=== PATIENT | male | born 1955 | race Caucasian/White ===

== ENCOUNTER → 2016-04-16 | Outpatient (CLI) | payer BC ==
[~2016-04-16] VITALS: Ht 170.2 cm; Wt 120.7 kg
[2016-04-16 15:28] VITALS: BP 128/78; PULSE 73; BMI 41.7
[2016-04-16 15:29] VITALS: BP 136/82; PULSE 73; Ht 170.2 cm; Wt 120.7 kg
== END | disposition home or self-care (01) ==
LOC: C.NEUR 15:07
PROVIDERS: ATTEND Internal Medicine Pulmonary Disease
DX: G47.30 Sleep apnea, unspecified (principal)

== ENCOUNTER → 2016-10-16 | Outpatient (CLI) | payer BC ==
[2016-10-16 12:42] LABS: ALT/SGPT 57 U/L (12-78); AST/SGOT 24 U/L (15-37); BLOOD UREA NITROGEN 20 mg/dl (7-18); BUN/CREATININE RATIO 18.5 (10-20); CALCIUM 8.8 mg/dl (8.5-10.1); CARBON DIOXIDE 26 mmol/L (21-32); CHLORIDE 106 mmol/L (98-107); CHOLESTEROL 214 mg/dl (0-200); GLUCOSE 103 mg/dl (70-99); POTASSIUM 4.1 mmol/L (3.5-5.1); SODIUM 139 mmol/L (136-145); TRIGLYCERIDES 164 mg/dl (0-150); VERY LOW DENSITY LIPOPROT CALC 33 mg/dl
[2016-10-16 12:47] LABS: ALB/GLOB RATIO 1.2 (0.9-2); ALKALINE PHOSPHATASE 64 U/L (45-117); CHOLESTEROL/HDL RATIO 5.8; HDL CHOLESTEROL 37 mg/dl; LDL CHOLESTEROL CALCULATED 144 mg/dl; PROSTATE SPECIFIC ANTIGEN 0.331 ng/ml (0.000-4.000)
--- NOTE | 2016-10-22 09:17 | CODING QUERY MEDICAL NECESSITY ---
SUPPORTING DIAGNOSIS NEEDED Ragini ELIZONDO, A supporting diagnosis is required for the test/procedure performed on this patient in order for us to be reimbursed by the patient's insurance. Please provide a supporting diagnosis for the following test/procedure listed below next to the test name along with your signature. *If there is no additional diagnosis for this patient that would support the following test/procedure please document that below next to the test/procedure. Test(s)/Procedure(s) that require a supporting diagnosis: * [id number] PSA DIAGNOSIS: DATE OF SERVICE: 10/16/16 Provider Signature: Date: Thank you Theo Alatorre [facility] Information Management Once completed, please kindly fax back to [phone] For questions please call [phone]
== END | disposition home or self-care (01) ==
LOC: C.LABBFT 08:26
PROVIDERS: ATTEND Physician Assistant
DX: Z00.00 Encounter for general adult medical examination without abnormal findings (principal); E78.00 Pure hypercholesterolemia, unspecified

== ENCOUNTER → 2016-12-05 | Outpatient (CLI) | payer BC ==
[2016-12-05 12:31] LABS: ESTIMATED AVERAGE GLUCOSE 126 mg/dl; HA1C FLAG Normal (Normal)
== END | disposition home or self-care (01) ==
LOC: C.LABBFT 08:20
PROVIDERS: ATTEND Physician Assistant
DX: R73.09 Other abnormal glucose (principal)

== ENCOUNTER → 2017-03-06 | Outpatient (CLI) | payer BC ==
--- NOTE | 2017-03-06 15:28 | DIAGNOSTIC IMAGING REPORT ---
LUMBAR SPINE MRI HISTORY: M54.5 Low back painM48.062 Neurogenic [id number] TECHNIQUE: Multiplanar multisequence MRI of the lumbar spine was performed without the use of contrast. COMPARISON: None. FINDINGS: For the purpose of the report the L5-S1 disc space will be located on axial image 23 of 25. There is 2 mm of anterolisthesis of L3 on L4. Moderate to space narrowing at L3-L4. Mild disc space to L2-L3. No fractures within the lumbar spine. The conus terminates at the L1 level. Severe facet osteoarthritis at L3-L4. Moderate facet osteoarthritis at L4-L5 and L5-S1. Partially imaged T2 hyperintense lesions within the kidneys. These favor cysts with the largest on the left measuring 3.9 cm. L1-L2: No significant central canal or neural foraminal narrowing. L2-L3: Small broad-based posterior disc bulge without significant central canal or neural foraminal narrowing. L3-L4: Small broad-based posterior disc bulge with advanced ligamentum and facet hypertrophy. This results in severe central canal narrowing. There is moderate bilateral neural foraminal narrowing. The central canal measures an AP diameter of 3.6 mm. L4-L5: No significant central canal or neural foraminal narrowing. L5-S1: No significant central canal or neural foraminal narrowing. IMPRESSION: 1. Severe central canal narrowing at L3-L4 due to a small broad-based posterior disc bulge and advanced ligamentum and facet hypertrophy. 2. There is also 2 mm of anterolisthesis of L3 on L4. 3. Facet osteoarthritis within the mid to lower lumbar spine. Electronically signed by: Yemi Sanchez M.D. 03/06/2017 3:26 PM Dictated Date/Time: 03/06/2017 3:21 PM
== END | disposition home or self-care (01) ==
LOC: C.MRI 13:53
PROVIDERS: ATTEND Internal Medicine
DX: M48.062 Spinal stenosis, lumbar region with neurogenic claudication (principal); M54.5 Low back pain; M51.26 Other intervertebral disc displacement, lumbar region; M53.86 Other specified dorsopathies, lumbar region; M47.816 Spondylosis without myelopathy or radiculopathy, lumbar region

== ENCOUNTER → 2017-04-18 | Outpatient (CLI) | payer OTHER ==
[~2017-04-18] VITALS: Ht 170.2 cm; Wt 113.7 kg
[~2017-04-18] MED LIST: COEN150C PO; DICL-201 PO
[2017-04-18 15:57] VITALS: BP 132/87; PULSE 64; Ht 170.2 cm; Wt 113.7 kg
== END | disposition home or self-care (01) ==
LOC: C.NEUR 15:20
PROVIDERS: ATTEND Physician Assistant
DX: G47.30 Sleep apnea, unspecified (principal)

== ENCOUNTER → 2017-07-26 | Outpatient (CLI) | payer OTHER ==
[2017-07-26 12:54] LABS: HEMOGLOBIN A1C 5.6 % (4.5-5.6)
[2017-07-26 12:55] LABS: ALBUMIN 3.8 gm/dl (3.4-5.0); ALT/SGPT 24 U/L (12-78); AST/SGOT 18 U/L (15-37); BLOOD UREA NITROGEN 16 mg/dl (7-18); CALCIUM 8.8 mg/dl (8.5-10.1); CARBON DIOXIDE 27 mmol/L (21-32); CREATININE 1.03 mg/dl (0.60-1.40); GLUCOSE 100 mg/dl (70-99); POTASSIUM 3.9 mmol/L (3.5-5.1); SODIUM 138 mmol/L (136-145)
[2017-07-26 12:58] LABS: ALKALINE PHOSPHATASE 74 U/L (45-117); CHOLESTEROL 177 mg/dl (0-200); LDL CHOLESTEROL CALCULATED 112 mg/dl; TOTAL PROTEIN 7.7 gm/dl (6.4-8.2)
== END | disposition home or self-care (01) ==
LOC: C.LABBFT 10:16
PROVIDERS: ATTEND Internal Medicine
DX: Z00.00 Encounter for general adult medical examination without abnormal findings (principal); E78.00 Pure hypercholesterolemia, unspecified; R73.01 Impaired fasting glucose

== ENCOUNTER 2021-05-06 12:39 | Inpatient (IN) ==
[2021-05-06] MEDS ORDERED: VANCOMYCIN HCL 2,000 MG in SODIUM CHLORIDE 0.9% 500 ML IV STA (12:50)
[2021-05-06] MEDS ORDERED: VANCOMYCIN CONSULT ACTIVE PRN (12:50)
[2021-05-06] MEDS ORDERED: cefTRIAXone SODIUM 2,000 MG/70 ML BAG IV STA (12:50)
[2021-05-06 13:23] LABS: Basophils # (auto) 0.01 K/uL (0-0.2); Basophils % (auto) 0.2 %; Eosinophils # (auto) 0.02 K/uL (0-0.5); Eosinophils % (auto) 0.4 %; Hematocrit (blood only) 39.2 % (42-52); Hemoglobin 13.2 g/dL (14.0-18.0); Immature Granulocytes # (auto) 0.01 K/uL (0.00-0.02); Immature Granulocytes % (auto) 0.2 %; Lymphocytes # (auto) 0.73 K/uL (1.2-3.4); Lymphocytes % (auto) 13.9 %; Mean Corpuscular Hemoglobin 30.3 pg (25-34); Mean Corpuscular Hgb Conc 33.7 g/dL (32-36); Mean Corpuscular Volume 90.1 fL (80-100); Mean Platelet Volume 9.2 fL (7.4-10.4); Monocytes % (auto) 9.5 %; Neutrophils # (auto) 3.99 K/uL (1.4-6.5); Neutrophils % (auto) 75.8 %; Platelet Count 254 K/uL (130-400); RDW Coefficient of Variation 13.4 % (11.5-14.5); RDW Standard Deviation 44.3 fL (36.4-46.3); Red Blood Count 4.35 M/uL (4.7-6.1); White Blood Count 5.26 K/uL (4.8-10.8)
[2021-05-06 13:42] LABS: Albumin Globulin Ratio 1.2 (0.9-2); Albumin Level 3.9 gm/dl (3.4-5.0); BUN Creatinine Ratio 16.4 (10-20); Bilirubin,Total 0.4 mg/dl (0.2-1.0); C Reactive Protein 17.93 mg/dl (0-0.5); Est GFR (African American) 81.8 ml/min; Est GFR (Non-African American) 70.6 ml/min; Globulin 3.3 gm/dl (2.5-4.0); Potassium 3.8 mmol/L (3.5-5.1); Total Protein 7.2 gm/dl (6.0-8.3)
--- NOTE | 2021-05-06 13:51 | Emergency Department Note ---
Impression & Plan Bacteremia, Fever, Acute UTI ED Provider Note INFORMANT: Patient ED PROVIDER(S): Elie Mohr MD CHIEF COMPLAINT: Abnormal blood work PLAN: Disposition: Admitted Condition: Good Outpatient prescription management: none Referral: None MEDICAL DECISION MAKING: Patient presented back to emergency department because of positive blood culture. He was actually feeling somewhat better today compared to previous days. His incision looked clean, dry, and intact. He had no significant joint findings in the right knee. Blood work was obtained. His white count was improved. The patient has elevated inflammatory markers. He was given a dose of IV Rocephin and vancomycin. I did discuss this with the ED pharmacist. Further management in the hospital will be necessary. The case was discussed with [facility]. [facility]. I also discussed the case with Dr. No of [facility]. They will consult on him as an inpatient. Patient was admitted by internal medicine for further management. Triage Nursing notes reviewed and agree them. Vital Signs: reviewed and remarkable for no significant abnormalities Differential diagnosis: urinary tract infection, sepsis, bacteremia, wound infection, as well as other pathologies. Diagnostics interpreted by me: ECG: none Cardiac Monitoring: Cardiac monitoring ordered by me: The patient was placed on continuous cardiac monitoring and observed. It revealed a normal sinus rhythm at 98beats per minute without ectopy or evidence of dysrhythmia. Imaging studies: Deferred HPI: The patient is a 65 year old male who presents to the Emergency Room with complaints of abnormal blood work. The patient was in the emergency department early on May 05. He had fever and testing was performed. He had an elevated white blood cell count and inflammatory markers. The patient was about 2 weeks status post revision of his right knee replacement. The incision appeared to be healing well at the time. He appeared to have a UTI as well. The patient was placed on cefdinir. Urine culture came back with an E. coli. Sensitivities pending. The patient was found to have 2 of 4 bottles positive for gram-positive bacteria on blood cultures. He was contacted by the ED pharmacist and told to return. Patient states that he did see his orthopedic surgeon yesterday and he was pleased with the healing process. The patient has noted no drainage, erythema, warmth, or pain in the knee or incision site. The patient also notes the following associated symptoms, nausea, occasional headache, weakness. Current pain is rated as 0/10. Pt denies LOC, headache, chills, diaphoresis, visual changes, neck pain, chest pain, breathing difficulties, vomiting, abdominal pain, back pain, melena, hematochezia, urinary symptoms, numbness, weakness, lymphadenopathy, rash, or other complaints. ROS: See above HPI for pertinent positives & negatives. A total of 10 systems reviewed and were otherwise negative. PAST MEDICAL HISTORY:See Below , high cholesterol PAST SURGICAL HISTORY:See Below, lumbar fusion FAMILY HISTORY:See Below SOCIAL HISTORY:See Below, HOME MEDICATIONS:See Below ALLERGIES:See Below VITALS:See Below PHYSICAL EXAMINATION: GENERAL: Awake, tired-appearing, in no distress HENT: Normocephalic, atraumatic. Oropharynx unremarkable. EYES: Normal conjunctiva. Sclera non-icteric. NECK: Inspection normal. Non-tender. Supple. No nuchal rigidity. FROM. No masses. RESPIRATORY: Clear to auscultation. No wheezes. No rales. Normal respiratory effort. CARDIAC: Normal rate. Normal rhythm. No murmurs. No rubs. Extremities warm and well perfused. Pulses equal. No JVD. GI: Soft, non-distended. No tenderness to palpation. No rebound or guarding. No masses. RECTAL: Deferred. MUSCULOSKELETAL: Atraumatic. Chest examination reveals no tenderness. The back is symmetrical on inspection without obvious abnormality. There is no CVA tende rness to palpation. No joint edema. LOWER EXTREMITIES: Calves are equal size bilaterally and non-tender. No edema. No discoloration. Incision site clean dry and intact. No joint warmth or tenderness. NEURO: Normal sensorium. No sensory or motor deficits noted. SKIN: No rash or jaundice noted. Elie Mohr MD Past Med/Surg History Medical History Chronic pain of right knee Hypercholesterolemia Impaired fasting glucose Obstructive sleep apnea Osteoarthritis Bilateral knees Spinal stenosis of lumbar region Surgical History Personal history of spine surgery S/P revision of total knee S/P total knee replacement Social History Smoking Status: Never smoker Hx Alcohol Use: Yes Alcohol type: beer Hx Substance Use: No Preferred Language: Ukrainian Communication Ability: Effective Rayon Tester Required: No Beliefs That Will Affect Care: None Current Living Situation: Spouse Feels Safe at Home: Yes Assistive Devices: Cane and Glasses Allergies Allergies Allergy/AdvReac Type Severity Reaction Status Date / Time No Known Allergies Allergy Verified 05/06/21 15:44 injectable steroid AdvReac Mild hiccups Uncoded 05/06/21 15:44 Home Meds Home Medications Medication Instructions Recorded Confirmed coenzyme Q10 150 mg capsule (Co 150 mg PO QPM 02/03/19 05/06/21 Q-10) tramadol 50 mg tablet 50 mg PO Q6H PRN 05/05/21 05/06/21 acetaminophen 500 mg tablet 500 mg PO Q8H PRN 05/06/21 05/06/21 aspirin 81 mg tablet,delayed 81 mg PO DAILY 05/06/21 05/06/21 release ibuprofen 200 mg tablet 600 mg PO Q8H PRN 05/06/21 05/06/21 multivitamin 1 tab PO QPM 05/06/21 05/06/21 Previous Rx's Medication Instructions Recorded atorvastatin 10 mg tablet 10 mg PO DAILY #90 tab 03/23/21 cefdinir 300 mg capsule 300 mg PO BID 10 Days #20 cap 05/05/21 Results & Data (ED) Vital Signs Vital Signs - 24 hr 05/06/21 12:43 05/06/21 13:08 05/06/21 13:30 Temperature 37.1 C Temperature Source Oral Pulse Rate 105 H 92 H 92 H Respiratory Rate 20 20 19 Respiratory Effort / Characteristics Non-Labored Spontaneous Respiratory Depth Normal Respiratory Pattern Regular Blood Pressure 148/80 H Blood Pressure Mean 102 Pulse Oximetry 98 Oxygen Delivery Method Room Air Sepsis Recent Fever Within 48 Hours Yes Sepsis New/Unexplained Change in Mental Status N/A Sepsis Action Taken by Nursing No Action Required 05/06/21 13:47 Temperature Temperature Source Pulse Rate 86 Respiratory Rate 22 Respiratory Effort / Characteristics Respiratory Depth Respiratory Pattern Blood Pressure 126/79 Blood Pressure Mean 94 Pulse Oximetry Oxygen Delivery Method Sepsis Recent Fever Within 48 Hours Sepsis New/Unexplained Change in Mental Status Sepsis Action Taken by Nursing Laboratory Data Result diagrams: 05/06/21 12:59 05/06/21 12:59 Lab Results 05/06/21 05/06/21 05/06/21 Range/Units 12:59 12:59 12:59 WBC 5.26 (4.8-10.8) K/uL RBC 4.35 L (4.7-6.1) M/uL Hgb 13.2 L (14.0-18.0) g/dL Hct 39.2 L (42-52) % MCV 90.1 (80-100) fL MCH 30.3 (25-34) pg MCHC 33.7 (32-36) g/dL RDW Std Deviation 44.3 (36.4-46.3) fL RDW Coeff of Mark 13.4 (11.5-14.5) % Plt Count 254 (130-400) K/uL MPV 9.2 (7.4-10.4) fL Immature Gran % (Auto) 0.2 % Neut % (Auto) 75.8 % Lymph % (Auto) 13.9 % [place] % (Auto) 9.5 % Eos % (Auto) 0.4 % Baso % (Auto) 0.2 % Neut # (Auto) 3.99 (1.4-6.5) K/uL Lymph # (Auto) 0.73 L (1.2-3.4) K/uL [place] # (Auto) 0.50 (0.11-0.59) K/uL Eos # (Auto) 0.02 (0-0.5) K/uL Baso # (Auto) 0.01 (0-0.2) K/uL Immature Gran # (Auto) 0.01 (0.00-0.02) K/uL ESR 71 H (0-20) mm/hr Sodium 134 L (136-145) mmol/L Potassium 3.8 (3.5-5.1) mmol/L Chloride 99 (98-107) mmol/L Carbon Dioxide 23 (21-32) mmol/L Anion Gap 12 H (3-11) BUN 18 (6-23) mg/dl Creatinine 1.10 (0.6-1.4) mg/dl Est Cr Clr Drug Dosing 77.0 ml/min Est GFR ( Amer) 81.8 ml/min Est GFR (Non-Af Amer) 70.6 ml/min BUN/Creatinine Ratio 16.4 (10-20) Glucose 119 H (70-99(Fasting)) mg/dl Lactate (0.4-2.0) mmol/L Calcium 9.0 (8.5-10.1) mg/dl Total Bilirubin 0.4 (0.2-1.0) mg/dl AST 26 (13-39) U/L ALT 25 (7-52) U/L Alkaline Phosphatase 71 (34-104) U/L C-Reactive Protein 17.93 H (0-0.5) mg/dl Total Protein 7.2 (6.0-8.3) gm/dl Albumin 3.9 (3.4-5.0) gm/dl Globulin 3.3 (2.5-4.0) gm/dl Albumin/Globulin Ratio 1.2 (0.9-2) Procalcitonin (0-0.5) ng/ml SARS-CoV-2, RNA, NAAT (NEGATIVE) 05/06/21 05/06/21 05/06/21 Range/Units 12:59 12:59 13:39 WBC (4.8-10.8) K/uL RBC (4.7-6.1) M/uL Hgb (14.0-18.0) g/dL Hct (42-52) % MCV (80-100) fL MCH (25-34) pg MCHC (32-36) g/dL RDW Std Deviation (36.4-46.3) fL RDW Coeff of Mark (11.5-14.5) % Plt Count (130-400) K/uL MPV (7.4-10.4) fL Immature Gran % (Auto) % Neut % (Auto) % Lymph % (Auto) % [place] % (Auto) % Eos % (Auto) % Baso % (Auto) % Neut # (Auto) (1.4-6.5) K/uL Lymph # (Auto) (1.2-3.4) K/uL [place] # (Auto) (0.11-0.59) K/uL Eos # (Auto) (0-0.5) K/uL Baso # (Auto) (0-0.2) K/uL Immature Gran # (Auto) (0.00-0.02) K/uL ESR (0-20) mm/hr Sodium (136-145) mmol/L Potassium (3.5-5.1) mmol/L Chloride (98-107) mmol/L Carbon Dioxide (21-32) mmol/L Anion Gap (3-11) BUN (6-23) mg/dl Creatinine (0.6-1.4) mg/dl Est Cr Clr Drug Dosing ml/min Est GFR ( Amer) ml/min Est GFR (Non-Af Amer) ml/min BUN/Creatinine Ratio (10-20) Glucose (70-99(Fasting)) mg/dl Lactate 1.4 (0.4-2.0) mmol/L Calcium (8.5-10.1) mg/dl Total Bilirubin (0.2-1.0) mg/dl AST (13-39) U/L ALT (7-52) U/L Alkaline Phosphatase (34-104) U/L C-Reactive Protein (0-0.5) mg/dl Total Protein (6.0-8.3) gm/dl Albumin (3.4-5.0) gm/dl Globulin (2.5-4.0) gm/dl Albumin/Globulin Ratio (0.9-2) Procalcitonin 0.59 H (0-0.5) ng/ml SARS-CoV-2, RNA, NAAT NEGATIVE (NEGATIVE) Administered Medications Enoxaparin Sodium (Enoxaparin Inj 40 Mg/0.4 Ml Syr) 40 mg SQ Q24H ROWAN Stop: 06/05/21 17:59 Last Admin: 05/06/21 18:00 Dose: Not Given Documented by: [id number] Parenteral Electrolytes (Normosol-R) 1,000 mls @ 90 mls/hr IV .Q11H7M ONE Stop: 05/07/21 02:10 Last Admin: 05/06/21 17:38 Dose: 90 mls/hr Documented by: [id number] Pantoprazole Sodium (Pantoprazole 40 Mg Tab) 40 mg PO DAILY ROWAN Stop: 06/05/21 14:45 Last Admin: 05/06/21 15:56 Dose: 40 mg Documented by: [id number] Discontinued Medications Ceftriaxone Sodium (Rocephin) 2,000 mg in 70 mls @ 140 mls/hr IV NOW STA Stop: 05/06/21 13:19 Last Infusion: 05/06/21 14:01 Dose: 0 mls/hr Documented by: [id number] Admin: 05/06/21 13:46 Dose: 140 mls/hr Documented by: [id number] Vancomycin HCl 2,000 mg/ (Sodium Chloride) 540 mls @ 200 mls/hr IV NOW STA Stop: 05/06/21 15:19 Last Infusion: 05/06/21 17:36 Dose: 0 mls/hr Documented by: [id number] Admin: 05/06/21 14:01 Dose: 200 mls/hr Documented by: [id number] Discharge Plan Visit Data Chief Complaint: Abnormal Labs/Diagnostic Testing Stated Complaint: ADVISED TO COME IN BECAUSE OF ABNORMAL LABS ED Provider: Elie Mohr Discharge Problem: Bacteremia, Fever, Acute UTI Patient Disposition: Admitted As Inpatient Discharge Instructions Interventions: ED Discharge Assessment Last Done: 05/06/21 16:20
--- NOTE | 2021-05-06 15:15 | History & Physical Report ---
Date of Service May 06, 2021 Assessment & Plan (1) Positive blood culture: Plan: Blood cultures from at 0036- 1/2 sets (2/4 bottles) positive for GPC - Other set is negative for growth to date - Await sensitivities and speciation- Continue with Vancomycin - No murmur on exam - Repeat blood cultures already drawn - WBC, CRP, and PCT are improving - Surgical site without obvious signs of infection - Normosol overnight for 1 liter until PO intake improves - ECHO while awaiting speciation (2) Acute UTI: Plan: E. coli from urine - Change Cefdinir to Rocephin as pending sensitivities while in house - Follow (3) Status post revision of total replacement of right knee: Plan: As above- TKA following revision - ? source - Appreciate Orthopaedics consult (4) Obstructive sleep apnea: Plan: CPAP 10cm H20 - to bring his machine in or provider here - Follows with pulmonary- good compliance at home (5) Hypercholesterolemia: Plan: Continue statin (6) Impaired fasting glucose: Plan: Without diagnosis of DM - Follow while in house with daily BMP History of Present Illness Primary Care Provider: Deyanira Agosto MD 65 YOM with past medical history of: Obesity, HLD, impaired fasting glucose, KYMBERLY, OA, Chronic right knee pain. Patient comes to the EMD for continued fevers, chills and + Blood culture in 2/4 bottles for GPC that was drawn on . Patient also with UTI of E.Coli from 05/05/21 as well with sensitivities to follow. Patient is s/p TKA on 03-06-[address] Mock, with re- do ~ 2 weeks ago following him slipping on ice and displacing the TKA. Patient came to the EMD on the of urary in the late evening for 2 day history of increase fatigue, fevers, chills, loss of appetite, headache and nausea. Patient states that on (Sat) he had increase fatigue and upon waking from nap he had chills and was sweaty, this did progress through - he checked his fever at home and was noted to be 102 and was also associated with a headache. He came to the EMD on in the late evening and his positive culture results are from the . He had blood cultures and UA performed at that time. He was prescribed Cefdinir and was called today to come in for the above blood culture results of GPC (awaiting speciation in one set out of two having GPCs). The blood cultures were repeated on arrival to the [facility] today. Patient also had routine labs drawn with a noted decrease in his WBC from previous draw 13-->5 as well as decrease in his NLR and his PCT is 0.59 which is decreased from 1.1 on the 10th. He had a follow up with Dr. Mock without any concerns for surgical site involvement reported by patient and . The right knee incision is dressed with steri-strips without any drainage or erythema, there is no joint tenderness and is without pain proximal or distal to the site. He remains in immobilizer. The patient had a CXR done on that was negative for acute process and remains without respiratory complaints. He has no other open areas on skin or feet noted, no lesions. LAYNE improved with IVF. Will admit for ABX therapy with Rocephin for his UTI, Vancomycin for his GPC until speciation, ECHO, Dr. No was consulted by [facility] provider; continue. Patient has received his COVID vaccine and his COVID test on admission is: NEGATIVE Allergies Allergy/AdvReac Type Severity Reaction Status Date / Time No Known Allergies Allergy Verified 05/06/21 15:44 injectable steroid AdvReac Mild hiccups Uncoded 05/06/21 15:44 Home Medications Medication Instructions Recorded Confirmed Type coenzyme Q10 150 mg capsule (Co 150 mg PO QPM 02/03/19 05/06/21 History Q-10) atorvastatin 10 mg tablet 10 mg PO DAILY #90 tab 03/23/21 05/06/21 Rx cefdinir 300 mg capsule 300 mg PO BID 10 Days #20 cap 05/05/21 05/06/21 Rx tramadol 50 mg tablet 50 mg PO Q6H PRN 05/05/21 05/06/21 History acetaminophen 500 mg tablet 500 mg PO Q8H PRN 05/06/21 05/06/21 History aspirin 81 mg tablet,delayed 81 mg PO DAILY 05/06/21 05/06/21 History release ibuprofen 200 mg tablet 600 mg PO Q8H PRN 05/06/21 05/06/21 History multivitamin 1 tab PO QPM 05/06/21 05/06/21 History Past Med/Surg History Medical History Chronic pain of right knee Hypercholesterolemia Impaired fasting glucose Obstructive sleep apnea Osteoarthritis Bilateral knees Spinal stenosis of lumbar region Surgical History Personal history of spine surgery S/P revision of total knee S/P total knee replacement Social History Smoking Status: Never smoker Hx Alcohol Use: Yes Alcohol type: beer Hx Substance Use: No Preferred Language: Korean Communication Ability: Effective Records Specialist Required: No Beliefs That Will Affect Care: None Current Living Situation: Spouse Feels Safe at Home: Yes Safety Concerns: Feels Safe At This Time Assistive Devices: Cane and Glasses Review of Systems Review of Systems: REVIEW OF SYSTEMS: Constitutional: (+) fever, sweats, headache Eyes: No diplopia, no worsening or blurred vision ENT: normal hearing, no trouble swallowing Respiratory: No cough, sputum, dyspnea at rest or on exertion Cardiovascular: No chest pain, tightness or palpitations Abdomen: No pain, nausea, vomiting, diarrhea or constipation Musculoskeletal: (+) right knee joint pain, NO calf pain, swelling Neurologic: No weakness, numbness/tingling, or balance problems Psychiatric: No anxiety or depression Skin: No rash or itch Physical Exam Physical Exam: PHYSICAL EXAM: General: awake, alert, no apparent distress Head: Normocephalic, atraumatic ENT: PERRL, EOMI, no pharyngeal exudate, mucous membranes moist Neuro: AAO x 3, speech clear and appropriate, strength intact bilaterally 5/5, sensation intact and equal all extremities and dermatomes, no pronator drift Chest: equal rise and fall of the chest, no accessory muscle use, no heaves or thrills, Clear to auscultation, on room air, Cardiac: Regular rate and rhythm, telemetry reviewed, skin warm dry, cap refill <3 seconds, peripheral pulses +2 no JVD, no murmur, no edema GI: NABS x 4 quadrants, soft, nontender to palpation, no rebound, guarding or tenderness : Spontaneously voiding, no pain, no CVA tenderness, Extremities: right knee incision with steri-strips, no drainage, erythema or effusion noted with palpation. Not tender to above or below the incision Psych: Normal mood and affect Skin: no rash or erythema Results & Data Results & Data ([facility]) Vital Signs (Past 12 Hours) Vital Signs Temp Pulse Resp BP Pulse Ox 05/06/21 13:47 86 22 126/79 05/06/21 13:30 92 H 19 05/06/21 13:08 92 H 20 05/06/21 12:43 37.1 C 105 H 20 148/80 H 98 Laboratory Results Laboratory Results - last 24 hr 05/06/21 05/06/21 05/06/21 12:59 12:59 12:59 WBC 5.26 RBC 4.35 L Hgb 13.2 L Hct 39.2 L MCV 90.1 MCH 30.3 MCHC 33.7 RDW Std Deviation 44.3 RDW Coeff of Mark 13.4 Plt Count 254 MPV 9.2 Immature Gran % (Auto) 0.2 Neut % (Auto) 75.8 Lymph % (Auto) 13.9 Phillips % (Auto) 9.5 Eos % (Auto) 0.4 Baso % (Auto) 0.2 Neut # (Auto) 3.99 Lymph # (Auto) 0.73 L Phillips # (Auto) 0.50 Eos # (Auto) 0.02 Baso # (Auto) 0.01 Immature Gran # (Auto) 0.01 ESR 71 H Sodium 134 L Potassium 3.8 Chloride 99 Carbon Dioxide 23 Anion Gap 12 H BUN 18 Creatinine 1.10 Est Cr Clr Drug Dosing 77.0 Est GFR ( Amer) 81.8 Est GFR (Non-Af Amer) 70.6 BUN/Creatinine Ratio 16.4 Glucose 119 H Lactate Calcium 9.0 Total Bilirubin 0.4 AST 26 ALT 25 Alkaline Phosphatase 71 C-Reactive Protein 17.93 H Total Protein 7.2 Albumin 3.9 Globulin 3.3 Albumin/Globulin Ratio 1.2 Procalcitonin SARS-CoV-2, RNA, NAAT 05/06/21 05/06/21 05/06/21 12:59 12:59 13:39 WBC RBC Hgb Hct MCV MCH MCHC RDW Std Deviation RDW Coeff of Mark Plt Count MPV Immature Gran % (Auto) Neut % (Auto) Lymph % (Auto) Phillips % (Auto) Eos % (Auto) Baso % (Auto) Neut # (Auto) Lymph # (Auto) Phillips # (Auto) Eos # (Auto) Baso # (Auto) Immature Gran # (Auto) ESR Sodium Potassium Chloride Carbon Dioxide Anion Gap BUN Creatinine Est Cr Clr Drug Dosing Est GFR ( Amer) Est GFR (Non-Af Amer) BUN/Creatinine Ratio Glucose Lactate 1.4 Calcium Total Bilirubin AST ALT Alkaline Phosphatase C-Reactive Protein Total Protein Albumin Globulin Albumin/Globulin Ratio Procalcitonin 0.59 H SARS-CoV-2, RNA, NAAT NEGATIVE Diagnostic Findings Reviewed from - no acute change in symptoms to repeat Medications Administered Vancomycin HCl 2,000 mg/ (Sodium Chloride) 540 mls @ 200 mls/hr IV NOW STA Stop: 05/06/21 15:19 Last Admin: 05/06/21 14:01 Dose: 200 mls/hr Documented by: [id number] Discontinued Medications Ceftriaxone Sodium (Rocephin) 2,000 mg in 70 mls @ 140 mls/hr IV NOW STA Stop: 05/06/21 13:19 Last Infusion: 05/06/21 14:01 Dose: 0 mls/hr Documented by: [id number] Admin: 05/06/21 13:46 Dose: 140 mls/hr Documented by: [id number] Home Medications coenzyme Q10 150 mg capsule (Co Q-10) 150 mg PO DAILY 02/03/19 [History Confirmed 05/05/21] atorvastatin 10 mg tablet 10 mg PO DAILY #90 tab 03/23/21 [Rx Confirmed 05/05/21] cefdinir 300 mg capsule 300 mg PO BID 10 Days #20 cap 05/05/21 [Rx] celecoxib 200 mg capsule 200 mg PO BID 05/05/21 [History Confirmed 05/05/21] meloxicam 15 mg tablet 15 mg PO UD 05/05/21 [History Confirmed 05/05/21] tramadol 50 mg tablet 50 mg PO UD PRN 05/05/21 [History Confirmed 05/05/21] Active Medications Vancomycin HCl 2,000 mg/ (Sodium Chloride) 540 mls @ 200 mls/hr IV NOW STA Stop: 05/06/21 15:19 Last Admin: 05/06/21 14:01 Dose: 200 mls/hr Documented by: Ceftriaxone Sodium 1,000 mg/ (Dextrose) 50 mls @ 100 mls/hr IV Q24H [facility]; Protocol Stop: 05/13/21 12:59 Parenteral Electrolytes (Normosol-R) 1,000 mls @ 90 mls/hr IV .Q11H7M ONE Stop: 05/07/21 02:10 Miscellaneous Information (Vancomycin Consult Active) 1 ea N/A UD PRN PRN Reason: Consult Stop: 06/05/21 12:49 Pantoprazole Sodium (Pantoprazole 40 Mg Tab) 40 mg PO DAILY ROWAN Stop: 06/05/21 14:45 ECG Additional Comments: Pending on admission as previous ECG was tachycardic- with normal HR on admisison Code Status & VTE Plan Code Status CODE: FULL VTE: SCDS, Lovenox 40mg SQ daily VTE Prophylaxis Plan VTE Prophylaxis will be ordered: Yes Supervising Physician Co-Signing Physician Notes Patient seen and examined, chart reviewed, case discussed with Faheem Lyons and I agree with the assessment and plan except as otherwise noted above. General: A&Ox3. NAD. Cooperative. HEENT: Atraumatic, normocephalic. Pulm: CTAB A&P. -wheezes, -rales, -rhonchi. Symmetrical chest rise. No increase work of breathing. No respiratory distress. Cardiac: RRR, -mrg. Radial pulses intact and symmetrical. Abdominal: Nontender, nondistended, soft. BS present. Extremity: Right knee incision intact, no erythema/dehiscence/effusion/fluctuance/drainage. No tracking erythema. Sensation in right and left lower extremity intact to soft touch without deficit. All labs and images reviewed Admitted for positive blood cultures, UTI with E. coli not consistent with positive blood cultures, and recent right knee revision with concern as potential source. Orthopedics consulted while in ER. Follow cultures/sensitivities as above, echo pending, continue Vanco/Rocephin as above. Agree with management as above. Coding Level of Care Code 48711 Initial Inpt Care Lvl 3 Diagnoses Positive blood culture R78.81 Acute UTI N39.0 Status post revision of total replacement of right knee Z96.651 Obstructive sleep apnea G47.33 Hypercholesterolemia E78.00 Impaired fasting glucose R73.01
[2021-05-06] MEDS: PANTOprazole 40 MG TAB PO SCH (15:56)
[2021-05-06] MEDS: NORMOSOL-R 1,000 ML IV ONE ×2 (15:56→17:38)
[2021-05-06] MEDS ORDERED: ONDANSETRON INJ 2 MG/ML 2 ML VIAL IV PRN (16:37)
[2021-05-06] MEDS ORDERED: POLYETHYLENE (MIRALAX) 17 GM PACK PO PRN (16:37)
[2021-05-06] MEDS ORDERED: ENOXAPARIN INJ 40 MG/0.4 ML SYR SQ SCH (18:00)
[2021-05-06] MEDS: ACETAMINOPHEN 325 MG TAB PO PRN (20:28)
[2021-05-06] MEDS: CeleBREX 200 MG CAP PO SCH (20:29)
[2021-05-07] MEDS: ACETAMINOPHEN 325 MG TAB PO PRN ×2 (02:03→11:56)
[2021-05-07] MEDS: VANCOMYCIN HCL 1,000 MG in SODIUM CHLORIDE 0.9% 250 ML IV SCH ×2 (02:04→15:03)
[2021-05-07] MEDS: CeleBREX 200 MG CAP PO SCH (08:57)
[2021-05-07] MEDS: PANTOprazole 40 MG TAB PO SCH (08:59)
[2021-05-07] MEDS ORDERED: ATORVASTATIN 10 MG TAB PO SCH (09:00)
--- NOTE | 2021-05-07 09:43 | XRay Report ---
XR knee RT 1 or 2V routine CLINICAL HISTORY: h/o right TKA TECHNIQUE: 2 views of the right knee were obtained. Comparison: Comparison is made to right knee radiographs 09/11/2013 FINDINGS: Patient is status post total knee arthroplasty. The alignment is anatomic. Joint spaces are well-pres erved. No joint effusion is seen. No soft tissue abnormality is seen. IMPRESSION: Status post total knee arthroplasty. ACT 112: Negative or not required by law. Electronically signed by: Erick Rosado M.D. 05/07/2021 9:42 AM
[2021-05-07 09:49] LABS: Basophils # (auto) 0.01 K/uL (0-0.2); Basophils % (auto) 0.2 %; Eosinophils % (auto) 2.4 %; Hematocrit (blood only) 36.8 % (42-52); Hemoglobin 12.1 g/dL (14.0-18.0); Immature Granulocytes # (auto) 0.02 K/uL (0.00-0.02); Immature Granulocytes % (auto) 0.5 %; Lymphocytes # (auto) 1.26 K/uL (1.2-3.4); Lymphocytes % (auto) 30.1 %; Mean Corpuscular Hemoglobin 29.5 pg (25-34); Mean Corpuscular Hgb Conc 32.9 g/dL (32-36); Mean Corpuscular Volume 89.8 fL (80-100); Mean Platelet Volume 9.4 fL (7.4-10.4); Monocytes # (auto) 0.58 K/uL (0.11-0.59); Monocytes % (auto) 13.8 %; Neutrophils # (auto) 2.22 K/uL (1.4-6.5); Platelet Count 255 K/uL (130-400); RDW Coefficient of Variation 13.3 % (11.5-14.5); RDW Standard Deviation 43.3 fL (36.4-46.3); White Blood Count 4.19 K/uL (4.8-10.8)
[2021-05-07 10:10] LABS: BUN Creatinine Ratio 15.5 (10-20); Calcium 8.4 mg/dl (8.5-10.1); Creatinine Clr Calc Pharmacy 87.3 ml/min; Est GFR (African American) 95.2 ml/min; Est GFR (Non-African American) 82.2 ml/min; Magnesium 1.9 mg/dl (1.7-2.4); Potassium 3.3 mmol/L (3.5-5.1)
--- NOTE | 2021-05-07 11:32 | Discharge Summary ---
Date of Service May 07, 2021 Admission HPI Per Admitting Provider 65 YOM with past medical history of: Obesity, HLD, impaired fasting glucose, KYMBERLY, OA, Chronic right knee pain. Patient comes to the [facility] for continued fevers, chills and + Blood culture in 2/4 bottles for GPC that was drawn on . Patient also with UTI of E.Coli from 05/05/21 as well with sensitivities to follow. Patient is s/p TKA on 03-06-[address] Mock, with re- do ~ 2 weeks ago following him slipping on ice and displacing the TKA. Patient came to the [facility] on the of April in the late evening for 2 day history of increase fatigue, fevers, chills, loss of appetite, headache and nausea. Byron hickey states that on (Sat) he had increase fatigue and upon waking from nap he had chills and was sweaty, this did progress through - he checked his fever at home and was noted to be 102 and was also associated with a headache. He came to the [facility] on in the late evening and his positive culture results are from the . He had blood cultures and UA performed at that time. He was prescribed Cefdinir and was called today to come in for the above blood culture results of GPC (awaiting speciation in one set out of two having GPCs). The blood cultures were repeated on arrival to the [facility] today. Patient also had routine labs drawn with a noted decrease in his WBC from previous draw 13-->5 as well as decrease in his NLR and his PCT is 0.59 which is decreased from 1.1 on the . He had a follow up with Dr. Mock without any concerns for surgical site involvement reported by patient and . The right knee incision is dressed with steri-strips without any drainage or erythema, there is no joint tenderness and is without pain proximal or distal to the site. He remains in immobilizer. The patient had a CXR done on that was negative for acute process and remains without respiratory complaints. He has no other open areas on skin or feet noted, no lesions. LAYNE improved with IVF. Will admit for ABX therapy with Rocephin for his UTI, Vancomycin for his GPC until speciation, ECHO, Dr. No was consulted by EMD provider; continue. Patient has received his COVID vaccine and his COVID test on admission is: NEGATIVE Discharge Data Consultations 05/06/21 13:24 ED Decision to Admit Stat 05/06/21 14:46 Consult Orthopedic Surgery Routine Hospital Course (1) Positive blood culture: Blood cultures from at 0036- 1/2 sets (2/4 bottles) positive for GPC - Other set is negative for growth to date - Await sensitivities and speciation- Continue with Vancomycin - No murmur on exam - Repeat blood cultures already drawn - WBC, CRP, and PCT are improving - Surgical site without obvious signs of infection - Normosol overnight for 1 liter until PO intake improves - ECHO while awaiting speciation 05/07/21 - blood culture results from 05/05/21 was GPC - that was MRSA PCR negative and speciated out to normal skin balta - Other set of cultures from 05/05/21 remain with NGTD - Repeat blood cultures from 05/07/21 remain with NGTD - Awaiting ECHO - D/C home with Cefdinir continued for his urinary tract infection (2) Acute UTI: E. coli from urine - Change Cefdinir to Rocephin as pending sensitivities while in house - Sensitivity resulted this morning with E.COL pansensative - will discharge back on his Cefdinir - no change (3) Status post revision of total replacement of right knee: As above- TKA following revision - Appreciate Orthopaedics consult (4) Obstructive sleep apnea: CPAP 10cm H20 - to bring his machine in or provider here - Follows with pulmonary- good compliance at home (5) Hypercholesterolemia: Continue statin (6) Impaired fasting glucose: Without diagnosis of DM - Follow while in house with daily BMP Supervising Physician Co-Signing Physician Notes Patient seen and examined, chart reviewed, case discussed with Faheem Lyons and I agree with the assessment and plan except as otherwise noted above. General: A&Ox3. NAD. Cooperative. HEENT: Atraumatic, normocephalic. Pulm: CTAB A&P. -wheezes, -rales, -rhonchi. Symmetrical chest rise. No increase work of breathing. No respiratory distress. Cardiac: RRR, -mrg. Radial pulses intact and symmetrical. Abdominal: Nontender, nondistended, soft. BS present. Extremity: Right knee incision intact, no erythema/dehiscence/effusion/fluctuance/drainage. No tracking erythema. Neurovascularly intact in upper and lower extremities. All labs and images reviewed Admitted with UTI, and for positive blood cultures. Suspect contaminant blood cultures. Agree with antibiotics for UTI as above. TTE pending read, return precaution including monitoring for cyclic fevers given to patient although low suspicion for endocarditis with no other clinical signs. Time spent on review of case, patient counseling, and review with PA approximately 30 minutes. Coding Level of Care Code D/C DAY MANAGEMENT >30 MINS Diagnoses Positive blood culture R78.81 Acute UTI N39.0 Status post revision of total replacement of right knee Z96.651 Obstructive sleep apnea G47.33 Hypercholesterolemia E78.00 Impaired fasting glucose R73.01
[2021-05-07] MEDS ORDERED: cefTRIAXone SODIUM 2,000 MG in DEXTROSE 5% 50 ML IV SCH (14:00)
--- NOTE | 2021-05-07 16:51 | Consultation Report ---
DATE OF CONSULTATION: 05/07/2019. HISTORY OF PRESENT ILLNESS: This is a 65-year-old gentleman who is seen at request of the medical se domenica regarding his right knee. He had a revision total knee arthroplasty performed by Dr. Emili shah proximately 2 weeks postop. The patient had fevers and chills for approximately 2 days. He was seen by his primary provider. He states his T-max was 102.4 and he noted that his revision knee was not painful, doing well and was seen by Dr. Mock for evaluation on 05/05/2021. The patient had no conc erns, Dr. Mock had no concerns regarding the knee. However, the patient continued to have fevers a nd chills, felt poorly and then presented to the Emergency Department. The patient was then seen aga in at the Emergency Department on 05/06/2021 as the patient had positive blood cultures. Noted to padron ve bacteremia, placed on IV antibiotics, admitted to the hospitalist service and Orthopedics was cons ulted to assess the knee. The patient had no complaints of the knee, however. PAST MEDICAL HISTORY: Knee pain, hypercholesterolemia, osteoarthritis, impaired fasting glucose, obs tructive sleep apnea, spinal stenosis. PAST SURGICAL HISTORY: Revision total knee replacement [address] Mock, spine surgery. ALLERGIES: INJECTABLE STEROID MILD HICCUPS. MEDICATIONS: Coenzyme Q, tramadol, acetaminophen, aspirin 81 mg, ibuprofen, and multivitamin. SOCIAL HISTORY: The patient denies tobacco use. He drinks beer. Denies drug use. He is an d lives with his spouse. PHYSICAL EXAMINATION: GENERAL: This is a pleasant 65-year-old gentleman, lying supine in hospital room bed with his ashley hines. He has a knee brace in place. EXTREMITIES: Focused examination of the right knee demonstrates Steri-Strips in place, tissue was so ft and pliant. There was no evidence of induration, no discharge, no drainage, no foul odor. No ski n discolorations. No induration, no fluid pockets or fluctuance. Dorsalis pedis and posterior tibia l pulses are 2/4 bilaterally symmetric. Sensation is intact. RADIOGRAPHS: Review demonstrate revision total knee arthroplasty with knee brace in place. Typical soft tissue swelling as anticipated postop knee. IMPRESSION: Right revision total knee arthroplasty 2 weeks postop, benign appearing. Urosepsis, cur rently being treated with IV antibiotics with associated bacteremia. RECOMMENDATIONS: Maintain the use of knee brace as directed by Dr. Mock, may bear weight for trans fers with assist and crutches or a walker. Follow up with Dr. Mock in office after discharge to [facility] for reassessment. Continue ice, elevation of the right knee. Limited range of motion as per Dr. Mock's protocol and physical therapy as per Dr. Mock. Thank you for the opportunity to consult in the care of this patient. Job ID: [id number]
--- NOTE | 2021-05-07 17:26 | XCELERA ---
[id number]
[2021-05-08] MEDS ORDERED: cefTRIAXone SODIUM 1,000 MG in DEXTROSE 5% 50 ML IV SCH (13:00)
--- NOTE | 2021-05-08 21:52 | Electrocardiogram Report ---
Test Reason : Blood Pressure : / mmHG Vent. Rate : 093 BPM Atrial Rate : 093 BPM P-R Int : 174 ms QRS Dur : 104 ms QT Int : 342 ms P-R-T Axes : 028 058 003 degrees QTc Int : 425 ms Normal sinus rhythm Normal ECG When compared with ECG of 05-MAY-2021 00:29, No significant change was found Confirmed by Azael Soria ([id number]) on 05/08/2021 9:51:59 PM Referred By: REFERRED SELF Confirmed By:Azael Soria
== END 2021-05-07 16:21 | disposition home or self-care (01) | DRG 872 ==
LOC: ED 12:39 → 3N 14:46

== ENCOUNTER 2023-06-18 21:18 | Inpatient (IN) ==
[2023-06-18 21:59] LABS: Basophils # (auto) 0.04 K/uL (0.00-0.20); Basophils % (auto) 0.6 %; Eosinophils % (auto) 1.6 %; Hemoglobin 15.4 g/dl (14.0-18.0); Immature Granulocytes # (auto) 0.02 K/uL (0.01-0.20); Immature Granulocytes % (auto) 0.3 %; Lymphocytes # (auto) 2.23 K/uL (1.20-3.40); Lymphocytes % (auto) 35.1 %; Mean Corpuscular Hemoglobin 30.1 pg (25.0-34.0); Mean Corpuscular Hgb Conc 34.2 g/dL (32.0-36.0); Mean Corpuscular Volume 87.9 fL (80.0-100.0); Monocytes # (auto) 0.61 K/uL (0.11-0.59); Monocytes % (auto) 9.6 %; Neutrophils # (auto) 3.36 K/uL (1.40-6.50); Neutrophils % (auto) 52.8 %; Platelet Count 239 K/uL (130-400); RDW Coefficient of Variation 12.9 % (11.5-14.5); RDW Standard Deviation 42.2 fL (36.4-46.3); Red Blood Count 5.12 M/uL (4.70-6.10); White Blood Count 6.36 K/ul (4.8-10.8)
[2023-06-18 22:10] LABS: Albumin Globulin Ratio 1.6 (0.9-2); Albumin Level 4.4 gm/dl (3.4-5.0); BUN Creatinine Ratio 14.9 (10-20); Bilirubin,Total 0.4 mg/dl (0.2-1.0); Calcium 9.1 mg/dl (8.6-10.3); Creatinine Clr Calc Pharmacy 77.7 ml/min; Est GFR (African American) 77.2 ml/min; Est GFR (Non-African American) 66.6 ml/min; Globulin 2.7 gm/dl (2.5-4.0); Potassium 3.9 mmol/L (3.5-5.1); Total Protein 7.1 gm/dl (6.0-8.3)
[2023-06-18 22:12] LABS: Magnesium 1.9 mg/dl (1.7-2.4)
[2023-06-18] MEDS: OPTIRAY 350 500ml IV ONE (22:49)
--- NOTE | 2023-06-18 23:02 | Emergency Department Note ---
History of Present Illness General Chief complaint: Chest Pain Stated complaint: CHEST PAIN, MINOR SOB, HAD COVID COUPLE WEEKS AGO Time Seen by Provider: 06/18/23 21:35 History of Present Illness Maximum Pain Intensity: 6 This 67-year-old male presents ER complaint of chest pain or shortness of breath further the past day. He recently had COVID. He does not smoke. Patient denies fever, chills, cough, congestion, flulike illness, leg pain or swelling. No history of DVT or PE. Home Medications Medication Instructions Recorded Confirmed Type atorvastatin 10 mg tablet 10 mg PO QDD 06/19/23 06/19/23 History coQ10 (ubiquinol) 200 mg capsule 200 mg PO QDD 06/19/23 06/19/23 History Allergies Allergy/AdvReac Type Severity Reaction Status Date / Time injectable steroid AdvReac Intermediate hiccups Uncoded 06/19/23 00:47 Past Med/Surg History Medical History (Updated 06/19/23 @ 01:00 by Sylvie Guzman PA-C) Elevated troponin Chest pain Impaired fasting glucose Chronic pain of right knee Obstructive sleep apnea Hypercholesterolemia Spinal stenosis of lumbar region Osteoarthritis Bilateral knees Surgical History S/P revision of total knee S/P total knee replacement Personal history of spine surgery Social History Smoking Status: Never smoker Hx Alcohol Use: Yes Alcohol type: beer Hx Substance Use: No Preferred Language: Romanian Communication Ability: Effective 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 Required: No Beliefs That Will Affect Care: None Current Living Situation: Spouse Feels Safe at Home: Yes Assistive Devices: Cane and Glasses Review of Systems A total of 10 systems reviewed and were otherwise negative Physical Exam Vital Signs Vital Signs - 24 hr 06/18/23 21:21 06/18/23 22:12 06/18/23 22:12 Temperature 36.5 C Temperature Source Temporal Artery Scan Pulse Rate 107 H 71 73 Pulse Rate from SpO2 Sensor 79 Respiratory Rate 18 20 Respiratory Effort / Characteristics Non-Labored Spontaneous Respiratory Depth Normal Blood Pressure 178/104 H Blood Pressure Mean 128 Pulse Oximetry 96 95 Oxygen Delivery Method Room Air Sepsis Recent Fever Within 48 Hours No Sepsis New/Unexplained Change in Mental Status No Sepsis Action Taken by Nursing No Action Required 06/18/23 22:30 06/18/23 22:30 Temperature Temperature Source Pulse Rate 98 H Pulse Rate from SpO2 Sensor Respiratory Rate 18 Respiratory Effort / Characteristics Respiratory Depth Blood Pressure 131/82 Blood Pressure Mean 91 Pulse Oximetry Oxygen Delivery Method Sepsis Recent Fever Within 48 Hours Sepsis New/Unexplained Change in Mental Status Sepsis Action Taken by Nursing VITALS: Vitals are noted on the nurse's note and reviewed by myself. Vital signs stable. GENERAL: Pleasant gentleman, in no acute distress, nondiaphoretic, well- developed well-nourished. SKIN: Capillary reflex less than 2 seconds. HEENT: Normocephalic. PERRLA. EOMI. Nares patent. Mucous membranes moist. Neck is supple without nuchal rigidity. HEART: Regular rate and rhythm LUNGS: Clear to auscultation bilaterally without wheezes, rales or rhonchi. No retractions or accessory muscle use. ABDOMEN: Positive bowel sounds x 4. Normal tympanic percussion. Soft, nontender, without masses or organomegaly. Espinoza sign negative. No guarding or rebound tenderness. no CVA tenderness MUSCULOSKELETAL: No gross musculoskeletal defects. NEURO: Patient was alert and oriented to person place and time. No focal neurological deficits. Course Administered Medications Discontinued Medications Ioversol (Optiray 350 500ml) 104 ml IV ONCE ONE Stop: 06/18/23 22:49 Last Admin: 06/18/23 22:49 Dose: 104 ml Documented By: ALIS Medical Decision Making Medical Records Attestation: I reviewed the patient's medical records. Home Medications Current Medication List: was personally reviewed by me Laboratory Data Attestation: I reviewed the patient's lab results. 06/18/23 21:30 06/18/23 21:30 Lab Results 06/18/23 06/18/23 Range/Units 21:30 23:00 WBC 6.36 (4.8-10.8) K/ul RBC 5.12 (4.70-6.10) M/uL Hgb 15.4 (14.0-18.0) g/dl Hct 45.0 (42.0-52.0) % MCV 87.9 (80.0-100.0) fL MCH 30.1 (25.0-34.0) pg MCHC 34.2 (32.0-36.0) g/dL RDW Std Deviation 42.2 (36.4-46.3) fL RDW Coeff of Mark 12.9 (11.5-14.5) % Plt Count 239 (130-400) K/uL MPV 10.0 (9.4-12.4) fL Immature Gran % (Auto) 0.3 % Neut % (Auto) 52.8 % Lymph % (Auto) 35.1 % [place] % (Auto) 9.6 % Eos % (Auto) 1.6 % Baso % (Auto) 0.6 % Neut # (Auto) 3.36 (1.40-6.50) K/uL Lymph # (Auto) 2.23 (1.20-3.40) K/uL [place] # (Auto) 0.61 H (0.11-0.59) K/uL Eos # (Auto) 0.10 (0.00-0.50) K/uL Baso # (Auto) 0.04 (0.00-0.20) K/uL Immature Gran # (Auto) 0.02 (0.01-0.20) K/uL Sodium 139 (136-145) mmol/L Potassium 3.9 (3.5-5.1) mmol/L Chloride 103 (98-107) mmol/L Carbon Dioxide 28 (21-32) mmol/L Anion Gap 8 (3-11) BUN 17 (6-23) mg/dl Creatinine 1.14 (0.6-1.4) mg/dl Est Cr Clr Drug Dosing 77.7 ml/min Est GFR ( Amer) 77.2 ml/min Est GFR (Non-Af Amer) 66.6 ml/min BUN/Creatinine Ratio 14.9 (10-20) Glucose 134 H (70-99(Fasting)) mg/dl Calcium 9.1 (8.6-10.3) mg/dl Magnesium 1.9 (1.7-2.4) mg/dl Total Bilirubin 0.4 (0.2-1.0) mg/dl AST 20 (13-39) U/L ALT 25 (7-52) U/L Alkaline Phosphatase 75 (34-104) U/L Troponin I High Sens 7.0 17.8 D (0-20) pg/ml Total Protein 7.1 (6.0-8.3) gm/dl Albumin 4.4 (3.4-5.0) gm/dl Globulin 2.7 (2.5-4.0) gm/dl Albumin/Globulin Ratio 1.6 (0.9-2) Lipase 37 (11-82) U/L Imaging Data Attestation: I personally reviewed and interpreted this imaging study as follows: Radiologist's Impression: Chest CTA 06/18/23 21:39 Exam(s): CTA CHEST IV Amt: 104 ml optiray 350 EXAM: CT Angiography Chest With Intravenous Contrast CLINICAL HISTORY: Reason for exam: PE. TECHNIQUE: Axial computed tomographic angiography images of the chest with intravenous contrast. CTDI is 28.14 mGy and DLP is 875.31 mGy-cm. Automated exposure control was utilized for the study. A dose lowering technique was utilized adhering to the principles of ALARA. MIP reconstructed images were created and reviewed. COMPARISON: Chest x-ray from June 18, 2023 FINDINGS: Pulmonary arteries: The pulmonary arterial tree is well opacified with contrast. No pulmonary embolism is identified. Aorta: The thoracic aorta is nondilated. There is no aneurysm or dissection. Lungs: The lungs are well-inflated. There is a small amount of scattered subsegmental atelectasis in both lung bases. No focal consolidation, pneumothorax, pleural effusion. Pleural space: See above. Heart: The heart is mildly enlarged. Moderate to severe coronary calcification is present. No pericardial effusion. No evidence of RV dysfunction. Bones/joints: Mild degenerative changes throughout the spine. No acute fracture or subluxation is seen. Soft tissues: Unremarkable. Lymph nodes: Unremarkable. No enlarged lymph nodes. IMPRESSION: 1. The lungs are well-inflated. There is a small amount of scattered subsegmental atelectasis in both lung bases. No focal consolidation, pneumothorax, pleural effusion. 2. The thoracic aorta is nondilated. There is no aneurysm or dissection. 3. The pulmonary arterial tree is well opacified with contrast. No pulmonary embolism is identified. 4. The heart is mildly enlarged. Moderate to severe coronary calcification is present. No pericardial effusion. Electronically signed by: Felipe Hill MD 06/19/23 00:17 AM [facility] Narrative Prior records/ancillary studies reviewed. Triage Nursing notes reviewed. Additional history obtained from nursing The patient's history was concerning for chest pain. Differential diagnosis: Etiologies such as cardiac ischemia, aortic dissection, pulmonary embolism, pneumonia, pneumothorax, musculoskeletal, infections, pericarditis, myocarditis, esophageal rupture, gastrointestinal, as well as others were entertained. Physical examination: As above. ER treatment provided: An order was placed for continuous cardiac monitoring. The monitor shows a rate of 60-100 with a sinus rhythm per my interpretation. Patient was observed On reassessment the patient felt better. Diagnostic interpretation by me: The electrocardiogram was negative for pathologic change. Ordered for chest pain EKG: Normal sinus, right bundle, no acute ST-T wave changes, rate of 88. Impression right bundle branch block independently interpreted by myself I think arrhythmia is unlikely. EKG shows normal sinus rhythm with no interval abnormalities such as QT prolongation or WPW. There are no findings to suggest Brugada syndrome. Cardiac monitoring in the emergency department reveals no tachycardic or bradycardic dysrhythmia. Hypertrophic cardiomyopathy was considered but there are no clear historical elements pointing toward this. EKG is not suggestive. The QRS voltage is not extremely large and there are no suggestive Q waves. The labs Independently Interpreted by myself revealed 2 negative troponins, mild hyperglycemia that DKA Imaging studies: Chest x-ray with no acute consolidation, pneumothorax or free air per my independent interpretation CTA was negative HEART SCORE: Hx: high/mod/low suspicion: 0 ECG: ST depression/nonspecific changes/normal: 1 Age: Greater than 65/45-64/less than 45: 2 Risk factors: (Hypertension, hyperlipidemia, diabetes, coronary disease, tobacco use, cocaine use): 1 Troponin: Greater than 2 times normal limits/1-2 times normal limits/normal: 0 Total: 4 Consultation: A consultation was placed with the hospitalist. The case was discussed and diagnostics were reviewed. The patient was evaluated in the ER for further treatment. Exam and history seeing assessment chest pain with a new right bundle on EKG and slightly higher repeat troponin. Medicine was consulted and case was discussed. Patient admitted for further evaluation and workup for cardiac rule out. Patient is agreeable. Heart score is moderate. CTA was negative. By the evaluation outlined above emergent etiologies such as aortic dissection, pulmonary embolism, pneumonia, pneumothorax, infections, pericarditis, myocarditis, gastrointestinal, as well as others were deemed relatively unlikely. The pt informed about the findings as listed above. All questions were answered and pleased with the treatment. The chart was completed utilizing Dragon Speech voice recognition software. Grammatical errors, random word insertions, pronoun errors, and incomplete sentences are an occassional consequence of this system due to software limitations, ambient noise, and hardware issues. Any formal questions or concerns about the content, text, or information contained within the body of this dictation should be directly addressed to the physician travel assistant for clarification. Impression & Plan Atypical chest pain Discharge Plan Visit Data Chief Complaint: Chest Pain Stated Complaint: CHEST PAIN, MINOR SOB, HAD COVID COUPLE WEEKS AGO ED Provider: Angelito Jimenez ED Midlevel Provider: Sylvie Guzman Discharge Problem: Atypical chest pain Patient Disposition: Being Evaluated by Hospitalist Condition: Good Forms Stand Alone Forms: [employer] Prescriptions Prescriptions: No Action coQ10 (ubiquinol) 200 mg Capsule 200 mg PO QDD atorvastatin 10 mg tablet 10 mg PO QDD Referrals Referrals: Deyanira Agosto MD [Primary Care Provider] -
--- NOTE | 2023-06-19 00:18 | CT Scan Report ---
Exam(s): CTA CHEST IV Amt: 104 ml optiray 350 EXAM: CT Angiography Chest With Intravenous Contrast CLINICAL HISTORY: Reason for exam: PE. TECHNIQUE: Axial computed tomographic angiography images of the chest with intravenous contrast. CTDI is 28.14 mGy and DLP is 875.31 mGy-cm. Automated exposure control was utilized for the study. A dose lowering technique was utilized adhering to the principles of ALARA. MIP reconstructed images were created and reviewed. COMPARISON: Chest x-ray from June 18, 2023 FINDINGS: Pulmonary arteries: The pulmonary arterial tree is well opacified with contrast. No pulmonary embolism is identified. Aorta: The thoracic aorta is nondilated. There is no aneurysm or dissection. Lungs: The lungs are well-inflated. There is a small amount of scattered subsegmental atelectasis in both lung bases. No focal consolidation, pneumothorax, pleural effusion. Pleural space: See above. Heart: The heart is mildly enlarged. Moderate to severe coronary calcification is present. No pericardial effusion. No evidence of RV dysfunction. Bones/joints: Mild degenerative changes throughout the spine. No acute fracture or subluxation is seen. Soft tissues: Unremarkable. Lymph nodes: Unremarkable. No enlarged lymph nodes. IMPRESSION: 1. The lungs are well-inflated. There is a small amount of scattered subsegmental atelectasis in both lung bases. No focal consolidation, pneumothorax, pleural effusion. 2. The thoracic aorta is nondilated. There is no aneurysm or dissection. 3. The pulmonary arterial tree is well opacified with contrast. No pulmonary embolism is identified. 4. The heart is mildly enlarged. Moderate to severe coronary calcification is present. No pericardial effusion. Electronically signed by: Felipe Hill MD 06/19/23 00:17 AM
--- NOTE | 2023-06-19 00:23 | History & Physical Report ---
"Date of Service June 19, 2023 Assessment & Plan (1) Chest pain: Plan: Summary: Amari is a 67M w/ PMH of KYMBERLY, HLD, impaired fasting glucose and osteoarthritis who presented to the ED for chest pain. ED Summary: Labs and Imaging Chest Pain | Rising Troponin * CP improved since presentation (had taken Aspirin prior to arrival), no additional intervention * CBC/CMP unremarkable * Chest CTA: Mild heart enlargement, moderate to severe coronary calcification, no evidence of PE * CXR: Cardiomegaly * Trop from 7 to 17 to 89, continue to trend q2h (repeat EKG w/o acute ST or T wave anomalies, no active CP) * Goal: K of 4/Mg of 2. Supplement K and Mg. * Echo 2021: EF 55-60%, normal LV size and function. Ordered stress Echo, given exertional sx. * Consult cardiology given new coronary artery calcification on CTA. Appreciate recommendations. New Complete RBBB (QRS 146) * EKG: NSR w/ new RBBB * Complete Block, QRS > 120 * Patient w/ hx of KYMBERLY, possible contributor, wears CPAP faithfully. * Echocardiogram planned for further evaluation (r/o pulmonary HTN) * No evidence of PE on CTA Chronic Conditions: * HLD - continue statin, no recent panel, check Lipid profile * KYMBERLY- continue CPAP, may use home device * OA - may have Tylenol PRN * Impaired Fasting Glucose - no Dx of DM, check A1c Code Status:Full Diet:Heart Healthy IVF:None DVT PPx:SCD CM: None Dispo: Med/Tele (2) Elevated troponin: (3) Impaired fasting glucose: (4) Obstructive sleep apnea: (5) Hypercholesterolemia: (6) Osteoarthritis: History of Present Illness Chief Complaint: Chest Pain Primary Care Provider: Deyanira Agosto MD Amari is a 67M w/ PMH of KYMBERLY, HLD, impaired fasting glucose and osteoarthritis who presented to the ED for chest pain. Patient notes that he presented this evening because of a severe episode of chest pain after work. He states that throughout the day today he was experiencing left hand numbness, but that when he got him, he experienced left sided chest discomfort radiating into his arm that would not resolve with rest. Patient is not actively having CP. He notes that 1 month ago he was diagnosed with COVID-19. He recovered and subsequently vacationed in [place] for 9 days. During this trip, he started having occasional episodes of 'hollow' chest discomfort with exercise/walking that would resolve with rest. He notes no dyspnea, claudication, LE edema, or orthopnea. He denies any nausea or emesis. No headaches or vision changes. During his trip, these episodes were happening 1-2 times per day, but none were as significant as tonights episode. Again, no associated symptoms, including no diaphoresis, headaches, or lightheadedness. This episode was unable to be resolved by rest, so his encouraged him to present to the ED. Patient took an Aspirin at home prior to arrival and does feel better than he did before leaving the house. He is still experiencing some left hand numbness and does note that his hands feel 'tighter/puffier' than what they normally do. 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 No recent medication changes. No new allergies. Allergies Allergy/AdvReac Type Severity Reaction Status Date / Time injectable steroid AdvReac Intermediate hiccups Uncoded 06/19/23 00:47 Home Medications Medication Instructions Recorded Confirmed Type atorvastatin 10 mg tablet 10 mg PO QDD 06/19/23 06/19/23 History coQ10 (ubiquinol) 200 mg capsule 200 mg PO QDD 06/19/23 06/19/23 History Past Med/Surg History Medical History (Updated 06/19/23 @ 01:00 by Sylvie Guzman PA-C) Elevated troponin Chest pain Impaired fasting glucose Chronic pain of right knee Obstructive sleep apnea Hypercholesterolemia Spinal stenosis of lumbar region Osteoarthritis Bilateral knees Surgical History S/P revision of total knee S/P total knee replacement Personal history of spine surgery Social History Smoking Status: Never smoker Hx Alcohol Use: Yes Alcohol type: beer Hx Substance Use: No Preferred Language: Tristanian Communication Ability: Effective Donor Floor Technician Required: No Beliefs That Will Affect Care: None Current Living Situation: Spouse Other Information That Helps Us Care for You: No Feels Safe at Home: Yes Safety Concerns: Feels Safe At This Time Assistive Devices: Glasses Physical Exam Physical Exam: Gen: NAD, alert, interactive HEENT: Supple, no LAD, no thyromegaly, no JVD Resp:Non-labored, no wheezing/rhonchi/rales, CTAB CV:RRR, normal S1/S2, no M/R/G Abd: Soft, non-distended, no TTP, normoactive bowels, no masses Extr: 2+ dp bilaterally, no edema Skin: No rashes lesions or erythema Results & Data Results & Data Vital Signs (Past 12 Hours) Vital Signs Temp Pulse Resp BP Pulse Ox O2 Del Method 06/18/23 22:30 98 H 18 06/18/23 22:30 131/82 06/18/23 22:12 73 20 95 06/18/23 22:12 71 06/18/23 21:21 36.5 C 107 H 18 178/104 H 96 Room Air Laboratory Results Laboratory Results WBC 6.87 K/ul (4.8-10.8) 06/19/23 04:39 RBC 4.96 M/uL (4.70-6.10) 06/19/23 04:39 Hgb 14.6 g/dl (14.0-18.0) 06/19/23 04:39 Hct 44.4 % (42.0-52.0) 06/19/23 04:39 MCV 89.5 fL (80.0-100.0) 06/19/23 04:39 MCH 29.4 pg (25.0-34.0) 06/19/23 04:39 MCHC 32.9 g/dL (32.0-36.0) 06/19/23 04:39 RDW Std Deviation 42.7 fL (36.4-46.3) 06/19/23 04:39 RDW Coeff of Mark 13.0 % (11.5-14.5) 06/19/23 04:39 Plt Count 229 K/uL (130-400) 06/19/23 04:39 MPV 9.6 fL (9.4-12.4) 06/19/23 04:39 Immature Gran % (Auto) 0.3 % 06/18/23 21:30 Neut % (Auto) 52.8 % 06/18/23 21:30 Lymph % (Auto) 35.1 % 06/18/23 21:30 [place] % (Auto) 9.6 % 06/18/23 21:30 Eos % (Auto) 1.6 % 06/18/23 21:30 Baso % (Auto) 0.6 % 06/18/23 21:30 Neut # (Auto) 3.36 K/uL (1.40-6.50) 06/18/23 21:30 Lymph # (Auto) 2.23 K/uL (1.20-3.40) 06/18/23 21:30 [place] # (Auto) 0.61 K/uL (0.11-0.59) H 06/18/23 21:30 Eos # (Auto) 0.10 K/uL (0.00-0.50) 06/18/23 21:30 Baso # (Auto) 0.04 K/uL (0.00-0.20) 06/18/23 21:30 Immature Gran # (Auto) 0.02 K/uL (0.01-0.20) 06/18/23 21:30 Sodium 137 mmol/L (136-145) 06/19/23 04:39 Potassium 4.3 mmol/L (3.5-5.1) 06/19/23 04:39 Chloride 105 mmol/L (98-107) 06/19/23 04:39 Carbon Dioxide 24 mmol/L (21-32) 06/19/23 04:39 Anion Gap 8 (3-11) 06/19/23 04:39 BUN 18 mg/dl (6-23) 06/19/23 04:39 Creatinine 1.07 mg/dl (0.6-1.4) 06/19/23 04:39 Est Cr Clr Drug Dosing 82.7 ml/min 06/19/23 04:39 Est GFR ( Amer) 83.4 ml/min 06/19/23 04:39 Est GFR (Non-Af Amer) 72.0 ml/min 06/19/23 04:39 BUN/Creatinine Ratio 16.8 (10-20) 06/19/23 04:39 Glucose 93 mg/dl (70-99(Fasting)) 06/19/23 04:39 Calcium 8.9 mg/dl (8.6-10.3) 06/19/23 04:39 Magnesium 2.1 mg/dl (1.7-2.4) 06/19/23 04:39 Total Bilirubin 0.3 mg/dl (0.2-1.0) 06/19/23 04:39 AST 19 U/L (13-39) 06/19/23 04:39 ALT 22 U/L (7-52) 06/19/23 04:39 Alkaline Phosphatase 69 U/L (34-104) 06/19/23 04:39 Troponin I High Sens 245.9 pg/ml (0-20) H* D 06/19/23 03:53 Total Protein 6.7 gm/dl (6.0-8.3) 06/19/23 04:39 Albumin 4.1 gm/dl (3.4-5.0) 06/19/23 04:39 Globulin 2.6 gm/dl (2.5-4.0) 06/19/23 04:39 Albumin/Globulin Ratio 1.6 (0.9-2) 06/19/23 04:39 Triglycerides 105 mg/dl (0-150) 06/19/23 04:39 Cholesterol 166 mg/dl (0-200) 06/19/23 04:39 LDL Cholesterol, Calc 99 mg/dl 06/19/23 04:39 VLDL Cholesterol, Calc 21 mg/dl (0-30) 06/19/23 04:39 HDL Cholesterol 46 mg/dl 06/19/23 04:39 Cholesterol/HDL Ratio 3.6 (0-5) 06/19/23 04:39 Lipase 37 U/L (11-82) 06/18/23 21:30 Impressions Chest X-Ray 06/18/23 21:24 SINGLE VIEW CHEST CLINICAL HISTORY: Atypical chest pain. FINDINGS: A PA chest radiograph is compared to study dated 05/04/2021. The heart is mildly enlarged. The pulmonary vasculature is noncongested. There is minimal bibasilar atelectasis. The lungs and pleural spaces are otherwise clear. No pneumothorax is seen. The bony thorax is grossly intact. IMPRESSION: Mild cardiomegaly with no active disease in the chest. ACT 112: Negative or not required by law. Electronically signed by: Ankit Murphy M.D. 06/19/2023 7:03 AM Chest CTA 06/18/23 21:39 Exam(s): CTA CHEST IV Amt: 104 ml optiray 350 EXAM: CT Angiography Chest With Intravenous Contrast CLINICAL HISTORY: Reason for exam: PE. TECHNIQUE: Axial computed tomographic angiography images of the chest with intravenous contrast. CTDI is 28.14 mGy and DLP is 875.31 mGy-cm. Automated exposure control was utilized for the study. A dose lowering technique was utilized adhering to the principles of ALARA. MIP reconstructed images were created and reviewed. COMPARISON: Chest x-ray from June 18, 2023 FINDINGS: Pulmonary arteries: The pulmonary arterial tree is well opacified with contrast. No pulmonary embolism is identified. Aorta: The thoracic aorta is nondilated. There is no aneurysm or dissection. Lungs: The lungs are well-inflated. There is a small amount of scattered subsegmental atelectasis in both lung bases. No focal consolidation, pneumothorax, pleural effusion. Pleural space: See above. Heart: The heart is mildly enlarged. Moderate to severe coronary calcification is present. No pericardial effusion. No evidence of RV dysfunction. Bones/joints: Mild degenerative changes throughout the spine. No acute fracture or subluxation is seen. Soft tissues: Unremarkable. Lymph nodes: Unremarkable. No enlarged lymph nodes. IMPRESSION: 1. The lungs are well-inflated. There is a small amount of scattered subsegmental atelectasis in both lung bases. No focal consolidation, pneumothorax, pleural effusion. 2. The thoracic aorta is nondilated. There is no aneurysm or dissection. 3. The pulmonary arterial tree is well opacified with contrast. No pulmonary embolism is identified. 4. The heart is mildly enlarged. Moderate to severe coronary calcification is present. No pericardial effusion. Electronically signed by: Felipe Hill MD 06/19/23 00:17 AM ECG Additional Comments: EKG with NSR at 60bpm, sinus arrhythmia, BY=730, CYH=044, YOy=500. RBBB present, TW abnormality in inferior leads. RBBB new from prior EKG May 06, 2021 (independently viewed) Supervising Physician Co-Signing Physician Notes Patient seen and examined, chart reviewed, case discussed with Dr. Grigsby and I agree with the assessment and plan as above. Patient with intermittent chest pain. Had some mild exertional CP appx 1 month ago while in [place]. Had a more severe episode today with radiation into the arm. Took ASA prior to arrival Now CP free EKG with RBBB, non-specific TW changes which are new from study in April Troponin steady increase 7 --> 17.8 --> 89.1 --> 245.9 Initially plan was to obtain stress echocardiogram, however, given increase in troponin will initiate heparin gtt, check 2D echo and consult Cardiology Continue to trend troponin to peak EKG as needed for chest pain Continue home ASA and Atorvastatin Remainder of plan as above Resident Activity Tracking Resident Involvement: Resident Care Provided Care Provided: Adult Hospital Medicine (night)"
[2023-06-19] MEDS ORDERED: ACETAMINOPHEN 325 MG TAB PO PRN (03:27)
[2023-06-19] MEDS: POTASSIUM CHLORIDE CRTAB 20 MEQ TABCR PO STA (03:47)
[2023-06-19] MEDS: MAGNESIUM SULFATE / D5W 1 GM/100 ML BAG IV ONE (03:47)
[2023-06-19 05:04] LABS: Hematocrit (blood only) 44.4 % (42.0-52.0); Hemoglobin 14.6 g/dl (14.0-18.0); Mean Corpuscular Hemoglobin 29.4 pg (25.0-34.0); Mean Corpuscular Hgb Conc 32.9 g/dL (32.0-36.0); Mean Corpuscular Volume 89.5 fL (80.0-100.0); Mean Platelet Volume 9.6 fL (9.4-12.4); Platelet Count 229 K/uL (130-400); RDW Standard Deviation 42.7 fL (36.4-46.3); Red Blood Count 4.96 M/uL (4.70-6.10); White Blood Count 6.87 K/ul (4.8-10.8)
[2023-06-19 05:21] LABS: Albumin Globulin Ratio 1.6 (0.9-2); Albumin Level 4.1 gm/dl (3.4-5.0); BUN Creatinine Ratio 16.8 (10-20); Bilirubin,Total 0.3 mg/dl (0.2-1.0); Calcium 8.9 mg/dl (8.6-10.3); Chol HDL Ratio 3.6 (0-5); Creatinine Clr Calc Pharmacy 82.7 ml/min; Est GFR (African American) 83.4 ml/min; Globulin 2.6 gm/dl (2.5-4.0); Magnesium 2.1 mg/dl (1.7-2.4); Potassium 4.3 mmol/L (3.5-5.1); Total Protein 6.7 gm/dl (6.0-8.3)
--- NOTE | 2023-06-19 07:04 | XRay Report ---
SINGLE VIEW CHEST CLINICAL HISTORY: Atypical chest pain. FINDINGS: A PA chest radiograph is compared to study dated 05/04/2021. The heart is mildly enlarged. T he pulmonary vasculature is noncongested. There is minimal bibasilar atelectasis. The lungs and pleur al spaces are otherwise clear. No pneumothorax is seen. The bony thorax is grossly intact. IMPRESSION: Mild cardiomegaly with no active disease in the chest. ACT 112: Negative or not required by law. Electronically signed by: Ankit Murphy M.D. 06/19/2023 7:03 AM
--- NOTE | 2023-06-19 07:25 | Billing Data ---
Date of Service June 19, 2023 Coding Level of Care Code 61803 INT INP/OBS CARE
[2023-06-19 07:30] LABS: Estimated Average Glucose 134 mg/dl; Hemoglobin A1C 6.3 % (4.5-5.6)
[2023-06-19] MEDS: Heparin IV Adult Wt-Based Standard *NO* INITIAL Bolus Protocol IV SCH (07:51)
[2023-06-19] MEDS: HEPARIN SODIUM/DEXTROSE 25,000 UNITS/500 ML BAG IV SCH (08:27)
[2023-06-19] MEDS: ASPIRIN 81 MG ECTAB PO SCH (09:00)
[2023-06-19 09:03] LABS: Partial Thromboplastin Time 27 Seconds (21-31); Prothrombin Time 10.6 Seconds (9.0-12.0)
--- NOTE | 2023-06-19 12:14 | Cardiology Consultation ---
Date of Consultation June 19, 2023 Assessment & Plan (1) Chest pain: -history quite suggestive of crescendo angina pectoris. -no acute EKG changes. -high sensitivity troponin now 365.7. -numerous risk factors for coronary artery disease. -agree with intravenous heparin. -scheduled for cardiac catheterization later today. (2) Hypercholesterolemia: -will likely need up titration of atorvastatin dose. History of Present Illness Attending Physician: Beck Meyer MD History of Present Illness Mr. Swanson is a 67-year-old male admitted earlier today with a chest pain syndrome. This consultation was ordered to assist in his cardiac management. The patient was in his usual state of health until approximately 1 month ago after he had recovered from a mild COVID infection. He was traveling in [place] and noticed a hollow sensation in his chest with physical activities such as climbing a steep hill. His discomfort resolved with rest. There were no other associated symptoms such as shortness of breath, nausea, vomiting, diaphoresis, or radiation of the discomfort. Yesterday, while at work, he was experiencing paresthesias in his left hand. When walking from his office to his car, he developed substernal chest pressure which radiated to his left arm. No other associated symptoms. The patient drove home and then chewed several aspirin tablets. His discomfort slowly resolved approximately 30-60 minutes. His convinced him to proceed to the emergency room for further care. Evaluation in the emergency room noted in normal high sensitivity troponin at 7. EKG noted a right bundle branch block without acute findings. CT scan of the chest failed to show pulmonary embolism or dissection, however, they are moderate to severe coronary calcifications. We have discussed need to proceed with a diagnostic cardiac catheterization. The patient understands and agrees. Past medical and surgical history 1. Hypertension 2. Hypercholesterolemia 3. Hyperglycemia 4. Obstructive sleep apnea 5. Spinal stenosis 6. DJD 7. Total knee replacement surgery 8. 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 Allergies Allergy/AdvReac Type Severity Reaction Status Date / Time injectable steroid AdvReac Intermediate hiccups Uncoded 06/19/23 00:47 Home Medications Medication Instructions Recorded Confirmed Type atorvastatin 10 mg tablet 10 mg PO QDD 06/19/23 06/19/23 History coQ10 (ubiquinol) 200 mg capsule 200 mg PO QDD 06/19/23 06/19/23 History Patient History Medical History (Updated 06/19/23 @ 01:00 by Sylvie Guzman PA-C) Elevated troponin Chest pain Impaired fasting glucose Chronic pain of right knee Obstructive sleep apnea Hypercholesterolemia Spinal stenosis of lumbar region Osteoarthritis Bilateral knees Surgical History S/P revision of total knee S/P total knee replacement Personal history of spine surgery Social History Smoking Status: Never smoker Hx Alcohol Use: Yes Alcohol type: beer Hx Substance Use: No Preferred Language: Kyrgyz Communication Ability: Effective Detective Chief Required: No Beliefs That Will Affect Care: None Current Living Situation: Spouse Other Information That Helps Us Care for You: No Feels Safe at Home: Yes Safety Concerns: Feels Safe At This Time Assistive Devices: Glasses Physical Exam Physical Exam: In general this is an obese white male in no acute distress. HEENT exam is negative. Neck is supple with full carotid upstrokes. There are no carotid bruits. Jugular venous pressure is flat at 90. There is no thyromegaly. Cardiovascular exam reveals a regular rhythm with a normal S1 and S2. No S3, S4, or murmurs are noted. Lungs are clear without rales, rhonchi, or wheezes. Abdomen is soft and nontender without bruits. Extremities reveal intact radial artery and posterior tibial pulses bilaterally. There is no peripheral edema. Results & Data Vital Signs (Past 12 Hours) Vital Signs Pulse Pulse Resp BP BP Pulse Ox Pulse Ox 06/19/23 10:00 61 16 06/19/23 09:01 62 14 145/72 H 98 06/19/23 08:56 69 18 145/72 H 06/19/23 08:00 54 L 16 06/19/23 07:10 51 L 06/19/23 06:00 50 L 16 116/70 06/19/23 04:00 58 L 16 130/92 06/19/23 04:00 96 06/19/23 02:12 56 L 06/19/23 01:30 61 20 134/92 95 06/19/23 01:01 126/90 06/19/23 00:30 125/99 O2 Del Method 06/19/23 10:00 06/19/23 09:01 Room Air 06/19/23 08:56 06/19/23 08:00 06/19/23 07:10 06/19/23 06:00 06/19/23 04:00 Room Air 06/19/23 04:00 06/19/23 02:12 06/19/23 01:30 Room Air 06/19/23 01:01 06/19/23 00:30 Laboratory Results CBC notes hemoglobin 14.6, crit 44.4, white count 6.8, platelet count of 206296. Electrolytes note a sodium of 137, potassium 4.3, chloride 105, bicarb 24, BUN 18, creatinine 1.1, glucose of 93. Initial high sensitivity troponin was 7 with follow-up values of 17.8, 89.1, 245.9, and 365.7. LDL cholesterol is 99 in the HDL cholesterol is 46. Diagnostic Findings Echocardiogram notes normal left ventricular systolic function without wall motion abnormalities. Left ventricular ejection fraction is 55-60%. There is borderline LVH and mild mitral regurgitation. Compared with the study performed in April 2021, no significant change. EKG notes normal sinus rhythm with a complete right bundle branch block. Chest x-ray notes cardiomegaly and no acute disease. CT scan of the chest described above. PG Care Time/CCT Total # of Minutes Spent Total Time Spent with Patient: Total time spent is greater than 50% in coordination of care (as documented) at patient's floor/unit and/or counseling patient: Coding Level of Care Code 70513 IN/OBS CONSULT LVL 5,80M Diagnoses Chest pain R07.9 Hypercholesterolemia E78.00
[2023-06-19 14:45] LABS: ANTI-Xa, UFH(UnfractionatedHep 0.44 IU/ml (0.3-0.7)
--- NOTE | 2023-06-19 16:06 | Electrocardiogram Report ---
Test Reason : Blood Pressure : / mmHG Vent. Rate : 088 BPM Atrial Rate : 088 BPM P-R Int : 200 ms QRS Dur : 140 ms QT Int : 514 ms P-R-T Axes : 029 051 -14 degrees QTc Int : 621 ms Sinus rhythm with marked sinus arrhythmia Right bundle branch block T wave abnormality, consider inferior ischemia Abnormal ECG When compared with ECG of 06-MAY-2021 18:46, Right bundle branch block is now Present Confirmed by Tano Lezama ([id number]) on 06/19/2023 4:06:01 PM Referred By: REFERRED SELF Confirmed By:Tano Lezama
--- NOTE | 2023-06-19 16:08 | Electrocardiogram Report ---
Test Reason : Blood Pressure : / mmHG Vent. Rate : 060 BPM Atrial Rate : 060 BPM P-R Int : 204 ms QRS Dur : 146 ms QT Int : 448 ms P-R-T Axes : 042 052 001 degrees QTc Int : 448 ms Normal sinus rhythm with sinus arrhythmia Right bundle branch block T wave abnormality, consider inferior ischemia Abnormal ECG When compared with ECG of 18-JUN-2023 21:27, (unconfirmed) T wave inversion no longer evident in Anterior leads QT has shortened Confirmed by Tano Lezama ([id number]) on 06/19/2023 4:07:53 PM Referred By: REFERRED SELF Confirmed By:Tano Lezama
[2023-06-19] MEDS ORDERED: NON-FORMULARY MEDICATION (Coq10 (Ubiquinol) 200 mg Capsule) PO SCH (16:30)
--- NOTE | 2023-06-19 16:32 | Pre Anesthesia Assessment ---
Date of Service June 19, 2023 Pre Sedation Assessment Vital Signs Temp Pulse Pulse Resp BP BP Pulse Ox 06/19/23 15:20 97.7 F 51 L 18 122/79 94 06/19/23 14:00 97.5 F L 62 18 145/87 H 99 06/19/23 13:42 06/19/23 13:38 06/19/23 10:00 61 16 06/19/23 09:01 62 14 145/72 H 98 06/19/23 08:56 69 18 145/72 H 06/19/23 08:00 54 L 16 06/19/23 07:10 51 L 06/19/23 06:00 50 L 16 116/70 06/19/23 04:00 58 L 16 130/92 06/19/23 04:00 06/19/23 02:12 56 L 06/19/23 01:30 61 20 134/92 95 06/19/23 01:01 126/90 06/19/23 00:30 125/99 06/19/23 00:00 104/85 06/18/23 23:25 85 123/80 06/18/23 23:00 98 H 16 121/74 06/18/23 22:30 98 H 18 06/18/23 22:30 131/82 06/18/23 22:12 73 20 95 06/18/23 22:12 71 06/18/23 21:21 97.7 F 107 H 18 178/104 H 96 Pulse Ox O2 Del Method 06/19/23 15:20 Room Air 06/19/23 14:00 Room Air, CPAP 06/19/23 13:42 Room Air 06/19/23 13:38 CPAP 06/19/23 10:00 06/19/23 09:01 Room Air 06/19/23 08:56 06/19/23 08:00 06/19/23 07:10 06/19/23 06:00 06/19/23 04:00 Room Air 06/19/23 04:00 96 06/19/23 02:12 06/19/23 01:30 Room Air 06/19/23 01:01 06/19/23 00:30 06/19/23 00:00 06/18/23 23:25 06/18/23 23:00 06/18/23 22:30 06/18/23 22:30 06/18/23 22:12 06/18/23 22:12 06/18/23 21:21 Room Air Cardiovascular + regular rate Respiratory + respiratory effort normal Pre-Sedation Airway Assessment Smoking Status: Never smoker Hx Sleep Apnea: No Hx Difficult Intubation: No Short, Thick Neck: No Thyromental Distance: > or= 3.5 Finger Breadths Oral Cavity: + WNL Mallampati Class: III ASA: ASA3 Procedure Planning Contraindications for Sedation: none Current Medications Reviewed: Yes Notes The planned sedation has been discussed with the patient. Informed Consent was obtained. I have identified the patient, determined the appropriateness of sedation and have assessed the patient immediately prior to the procedure. All medicine(s) and interventions are by my order.
[2023-06-19] MEDS: MIDAZOLAM HCL 1 MG/ML 2ML VIAL ONE (17:40)
[2023-06-19] MEDS: fentaNYL citrate PF 100 MCG/2 ML VIAL ONE (17:40)
[2023-06-19] MEDS: HEPARIN (PORCINE) 1000 UNIT/ML 10 ML (CATH LAB USE ONLY) ONE ×2 (17:41→17:43)
[2023-06-19] MEDS: LIDOCAINE 1% LOCAL 20 ML VIAL ONE (17:41)
[2023-06-19] MEDS: niCARdipine HCL INJ 2.5 MG/ML 10 ML AMP ONE (17:41)
[2023-06-19] MEDS: NITROGLYCERIN/D5W 100MCG/ML 20ML SYR ONE (17:42)
[2023-06-19] MEDS: TICAGRELOR 90 MG TAB ONE (17:43)
--- NOTE | 2023-06-19 18:02 | Post Anesthesia Assessment ---
Date of Service June 19, 2023 Post Sedation Assessment Vital Signs Temp Pulse Pulse Resp BP BP Pulse Ox 06/19/23 17:37 53 L 06/19/23 15:20 97.7 F 51 L 18 122/79 94 06/19/23 14:00 97.5 F L 62 18 145/87 H 99 06/19/23 13:42 06/19/23 13:38 06/19/23 10:00 61 16 06/19/23 09:01 62 14 145/72 H 98 06/19/23 08:56 69 18 145/72 H 06/19/23 08:00 54 L 16 06/19/23 07:10 51 L 06/19/23 06:00 50 L 16 116/70 06/19/23 04:00 58 L 16 130/92 06/19/23 04:00 06/19/23 02:12 56 L 06/19/23 01:30 61 20 134/92 95 06/19/23 01:01 126/90 06/19/23 00:30 125/99 06/19/23 00:00 104/85 06/18/23 23:25 85 123/80 06/18/23 23:00 98 H 16 121/74 06/18/23 22:30 98 H 18 06/18/23 22:30 131/82 06/18/23 22:12 73 20 95 06/18/23 22:12 71 06/18/23 21:21 97.7 F 107 H 18 178/104 H 96 Pulse Ox O2 Del Method 06/19/23 17:37 06/19/23 15:20 Room Air 06/19/23 14:00 Room Air, CPAP 06/19/23 13:42 Room Air 06/19/23 13:38 CPAP 06/19/23 10:00 06/19/23 09:01 Room Air 06/19/23 08:56 06/19/23 08:00 06/19/23 07:10 06/19/23 06:00 06/19/23 04:00 Room Air 06/19/23 04:00 96 06/19/23 02:12 06/19/23 01:30 Room Air 06/19/23 01:01 06/19/23 00:30 06/19/23 00:00 06/18/23 23:25 06/18/23 23:00 06/18/23 22:30 06/18/23 22:30 06/18/23 22:12 06/18/23 22:12 06/18/23 21:21 Room Air Recovery Score Activity: Moves 4 extremities Respiration: Deep Breath/Cough Circulation: +/-20% PreAnes Value Consciousness: Fully Awake Oxygen Saturation: O2 needed for >90% Discharge Sedation Level of Care: Fast Track Phase II Post Sedation Plan On clinical assessment, the patient appears to have tolerated the sedation without complications. Patient is recovering as anticipated. Patient will continue to be monitored by nursing and may be discharged when sedation discharge criteria are met per below protocol. Upon Completions of procedure up to 15 minutes continue every 5 minute vital signs and the P.A.R. score; then discharge to a Phase I or Fast Track to Phase II per the following guidelines: * Discharge Patient to appropriate Phase II area if PAR is 8 or greater or return to pre- procedure baseline. The post - procedure orders will be as directed. * If PAR score is less than 8 or not return to pre-procedure baseline then patient will follow Phase I monitoring till PAR is reached for Phase II. The Phase I may be done in procedure room or may call to secure a Phase I area. * If naloxone or flumazenil are used for reversal, hold in Phase I for continued monitoring from when last reversal dose was given for a minimum of 60 minutes or longer pending the nurse and/or physician discretion of patient condition before discharge to Phase II. Please call the Sedation Physician to re-evaluate and complete post-note for discharge to Phase II area. Do NOT discharge from procedure sedation or Phase 1 until post- sedation evaluation note is complete by procedure /sedation MD Sedation Discharge Instructions to be given to the patient at discharge to home.
--- NOTE | 2023-06-19 18:10 | Cardiac Catheterization ---
[facility] Data: Cloth Spreader Screen Printing Cardiac Status Clinical evaluation leading to the procedure CAD Presenation: Non STEMI Anginal Classification: CCS IV Heart Failure: No Diagnostic Physicians Name: Juan Khoury MD Closure Device Recommendations: PCI without planned CABG Cardiac Cath Procedure Full Procedure Date June 19, 2023 Pre-Procedure Diagnosis Pre-Procedure Diagnosis: Non STEMI AUC Score AUC Score: 8 Post-Procedure Diagnosis Post-Procedure Diagnosis: Severe CAD, Successful PCI and Normal Intracardiac P ressures Procedure(s) Performed Procedure(s) Performed: Coronary Angiography, Left Heart Cath, Drug Eluting Stent and IVUS Garage Hand Juan Khoury MD Supervisor Boarding(s) Shauna Estimated Blood Loss Estimated Blood Loss: 15 Medication(s) Medication(s): Fentanyl, Heparin, Lidocaine 1%, Nicardipine, Nitroglycerin and Versed Summary of Findings Indication: NSTEMI Access: 6 Fr right radial artery Catheters: Julian, EBU 3.5 guide Findings: LM -normal caliber, no significant disease LAD -large caliber, 50% proximal stenosis at takeoff of first septal. Diffuse mid segment disease up to 40%. Distal vessel with 90% focal stenosis before vessel wraps around apex. Ramusmedium caliber, 95% proximal stenosis, remainder of vessel without significant disease. Circumflex -subtotal proximal occlusion. Left PLB, distal circumflex fills via right to left collaterals. RCA -dominant, large caliber, diffuse mid 30 to 40% disease. Distal vessel, RPDA without disease. LVEDP -13 IVUS of LAD Colorer 50 wire navigated across earlymid LAD stenosis into distal vessel Amor IVUS catheter placed into mid vessel. Pullback revealed mildly calcified diffuse disease up to 50% by IVUS at takeoff of the first septal (CSA 6.1 mm) No significant left main disease -- PCI of ramus-- Antithrombotic therapy: Heparin, clopidogrel Procedure: Left main cannulated with EBU 3.5 guide Pre-procedure flow RAJ 3 Colorer 50 wire passed across lesion into distal vessel Proximal ramus lesion predilated with 2.0 compliant balloon Dilated lesion stented with 2.25 x 15 mm [place] MARTA Stent post-dilated with 2.5 noncompliant balloon IC vasodilators administered for spasm Post procedure RAJ 3 flow, stent well expanded with minimal residual stenosis and no apparent cardiac complications. PCI of distal LAD Colorer 50 wire navigated across distal stenosis into apical vessel Distal LAD lesion dilated with 2.0 balloon Distal LAD stented with 2.5 x 12 mm [place] MARTA Stent postdilated with 2.75 NC to high atmospheres IC vasodilators administered for spasm Post procedure RAJ III flow, stent well-expanded with minimal residual stenosis and no apparent cardiac complications. Arterial Closure: TR band Summary: 1. Multi-vessel coronary artery disease -Subtotal occlusion proximal circumflex with right to left collaterals 95% proximal ramus 50% proximal LAD by IVUS. 90% distal LAD stenosis 2. Normal intracardiac filling pressure 3. Successful PCI of proximal ramus with single MARTA (2.25 x 15 mm Jose; postdilated with 2.5 NC). 4. Successful PCI of distal LAD with single MARTA (2.5 x 12 mm Jose; postdilated with 2.75 NC). Recommendations: To PCU for continued monitoring Loaded with ticagrelor 180 mg in Cloth Spreader Screen Printing Continue dual-antiplatelet therapy for at least 1 year Continue statin, and ASCVD risk factor modification Consult cardiac Rehab Hemodynamics Rest Ao:: 137/90/20 Final Ao: 129/76/98 LV: 132/13 Recommendations Recommendations: PCI without planned CABG Specimens Specimens: None Radiation Exposure (mGy) 4466 Contrast (mls) 200 Anesthesia Moderate 7147-7535 Procedural Complication(s) None Disposition PCU I attest to the content of the Intraoperative Record and any orders documented therein. Any exceptions are noted below. [facility] Card Cath Procedure Codes Cardiac Catheterization Procedure 1: Cardiovascular Cath Procedures: 25288 Coronaries and LHC (+/-LV) Therapeutic Services & Ancillary Procedure 1: Cardiovascular Tx and Anc Procedures: 13689 IV Ultrasound (Coronary or Graft) Moderate Sedation Procedure 1: Sedation/Anesthesia: 98205 Mod Sedation by the same physician;Init15 Min Child Age 5 & Up Procedure 2: Sedation/Anesthesia: 64619 Mod Sedation by the same physician; Ea [id number] Minutes Stenting Procedure 1: Cardiovascular Stent Procedures: 52908 Perc transcatheter placement of intracoronary stent(s), with ang PG Care Time/CCT Total # of Minutes Spent Total Time Spent with Patient: Total time spent is greater than 50% in coordination of care (as documented) at patient's floor/unit and/or counseling patient:
[2023-06-19] MEDS: ATORVASTATIN 10 MG TAB PO SCH (18:46)
[2023-06-19] MEDS: SODIUM CHLORIDE 0.9% 1,000 ML IV SCH (18:50)
[2023-06-20 07:29] LABS: ANTI-Xa, UFH(UnfractionatedHep < 0.10 IU/ml (0.3-0.7)
[2023-06-20 07:45] VITALS: RESP 18; TEMP 98.1
[2023-06-20] MEDS: TICAGRELOR 90 MG TAB PO SCH (08:40)
--- NOTE | 2023-06-20 10:50 | Hospitalist Progress Note ---
"Date of Service June 20, 2023 Assessment & Plan (1) Chest pain: Plan: Amari is a 67M w/ PMH of KYMBERLY, HLD, impaired fasting glucose and osteoarthritis who presented to the ED for chest pain. Chest Pain | Rising Troponin * CP improved since presentation (had taken Aspirin prior to arrival), no additional intervention * CBC/CMP unremarkable * Chest CTA: Mild heart enlargement, moderate to severe coronary calcification, no evidence of PE * CXR: Cardiomegaly * Trop from 7 to 17 to 89, continue to trend q2h (repeat EKG w/o acute ST or T wave anomalies, no active CP) * Echo 2021: EF 55-60%, normal LV size and function. Ordered stress Echo, given exertional sx. * Consult cardiology given new coronary artery calcification on CTA. Appreciate recommendations. * Cardiac cath showed severe CAD, successful PCI with drug-eluting stent x 2 * Continue dual antiplatelets * Per interventional cardiology, patient may need a second cardiac cath today New Complete RBBB (QRS 146) * EKG: NSR w/ new RBBB * Complete Block, QRS > 120 * Patient w/ hx of KYMBERLY, possible contributor, wears CPAP faithfully. * No evidence of PE on CTA * Now status post cardiac cath which showed evidence of severe disease, status post drug-eluting stent x 2 Chronic Conditions: * HLD - continue statin, no recent panel, check Lipid profile * KYMBERLY- continue CPAP, may use home device * OA - may have Tylenol PRN * Impaired Fasting Glucose - no Dx of DM, check A1c Code Status:Full Diet:Heart Healthy IVF:None DVT PPx:SCD CM: None Dispo: Med/Tele (2) Elevated troponin: (3) Impaired fasting glucose: (4) Obstructive sleep apnea: (5) Hypercholesterolemia: (6) Osteoarthritis: Plan Continue hospitalization Admission and Anticipated Discharge Date Admission Date: June 19, 2023 Results & Data Results & Data Vital Signs (Past 12 Hours) Vital Signs Temp Pulse Pulse Resp BP Pulse Ox O2 Del Method 06/20/23 10:17 CPAP 06/20/23 10:17 56 L 06/20/23 07:44 98.1 F 56 L 18 127/71 4 L Room Air 06/20/23 02:26 97.5 F L 59 L 20 134/70 93 Room Air 06/19/23 22:55 98.4 F 57 L 20 132/74 96 CPAP 06/19/23 22:49 57 L PG Care Time/CCT Total # of Minutes Spent Total Time Spent with Patient: Total time spent is greater than 50% in coordination of care (as documented) at patient's floor/unit and/or counseling patient: Coding Level of Care Code 84842 SUB INP/OBS CARE 2/35MIN Diagnoses Chest pain R07.9 Elevated troponin R79.89 Impaired fasting glucose R73.01 Obstructive sleep apnea G47.33 Hypercholesterolemia E78.00 Osteoarthritis M19.90 Time Spent (min) 35"
[2023-06-20 11:30] VITALS: BP 120/74; PULSE 57; O2SAT 93
--- NOTE | 2023-06-20 12:38 | Cardiology Progress Note ---
Date of Service June 20, 2023 Assessment & Plan (1) CAD (coronary artery disease): Plan: Multivessel CADpost MARTA to proximal ramus, distal LAD Residual occluded LCx with right to left collaterals. 50% proximal LAD 2. Preserved LV function with subtle lateral wall motion abnormalities 3. Dyslipidemia Chest pain-free today with walking Hemodynamically and electrically stable No access site complications. From a cardiac standpoint okay with discharge today. Home on DAPT with aspirin, ticagrelor Increase atorvastatin to 40 mg daily. Target LDL <55 Will hold off on beta-ronny in the setting of sinus bradycardia. Start low-dose lisinopril 5 mg daily Follow-up with cardiology in 1 to 2 weeks. We discussed cardiac rehab today Admission and Anticipated Discharge Date Admission Date: June 19, 2023 Subjective Feeling well today. No recurrent chest pain. Up walking the halls this morning without symptoms. Telemetry reviewedno event Review of Systems Review of Systems: All systems reviewed & are unremarkable except as noted in HPI & below Physical Exam Physical Exam: General: Comfortable HEENT: Sclerae anicteric Lungs: Clear to auscultation bilaterally Cardiac: Regular rate and rhythm, no murmurs. Vascular: Right radial artery access site with no ecchymosis, hematoma. Distal pulse and sensation intact. Abdomen: Soft, nontender Extremities: Well perfused, no peripheral edema Neuro: Nonfocal Psych: Alert orient x3, normal affect and mood Results & Data Vital Signs (Past 12 Hours) Vital Signs Temp Pulse Pulse Resp BP Pulse Ox O2 Del Method 06/20/23 11:29 98.1 F 57 L 18 120/74 93 Room Air 06/20/23 10:17 CPAP 06/20/23 10:17 56 L 06/20/23 07:44 98.1 F 56 L 18 127/71 4 L Room Air 06/20/23 02:26 97.5 F L 59 L 20 134/70 93 Room Air PG Care Time/CCT Total # of Minutes Spent Total Time Spent with Patient: Total time spent is greater than 50% in coordination of care (as documented) at patient's floor/unit and/or counseling patient: Coding Level of Care Code 38422 SUB INP/OBS CARE 3/50MIN Diagnoses CAD (coronary artery disease) I25.10
--- NOTE | 2023-06-20 12:47 | Discharge Summary ---
"Date of Service June 20, 2023 Admission HPI Per Admitting Provider Amari is a 67M w/ PMH of KYMBERLY, HLD, impaired fasting glucose and osteoarthritis who presented to the ED for chest pain. Patient notes that he presented this evening because of a severe episode of chest pain after work. He states that throughout the day today he was experiencing left hand numbness, but that when he got him, he experienced left sided chest discomfort radiating into his arm that would not resolve with rest. Patient is not actively having CP. He notes that 1 month ago he was diagnosed with COVID-19. He recovered and subsequently vacationed in [place] for 9 days. During this trip, he started having occasional episodes of 'hollow' chest discomfort with exercise/walking that would resolve with rest. He notes no dyspnea, claudication, LE edema, or orthopnea. He denies any nausea or emesis. No headaches or vision changes. During his trip, these episodes were happening 1-2 times per day, but none were as significant as tonights episode. Again, no associated symptoms, including no diaphoresis, headaches, or lightheadedness. This episode was unable to be resolved by rest, so his encouraged him to present to the ED. Patient took an Aspirin at home prior to arrival and does feel better than he did before leaving the house. He is still experiencing some left hand numbness and does note that his hands feel 'tighter/puffier' than what they normally do. 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 No recent medication changes. No new allergies. Principal Diagnosis ACS Discharge Exam The patient is awake, alert and oriented 3, well developed and well nourished, normocephalic and atraumatic, lying in bed and in no acute distress. HEENT--PERRL, EOMI, mucous membranes and oropharynx mildly dry Neck--supple. No JVD. No bruits. Thyroid normal, trachea midline, no adenopathy. Heart--normal S1 and S2. No murmurs, rubs or gallops. Lungs--clear bilaterally, no respiratory distress, no accessory muscle use. Abdomen--normal bowel sounds and soft. Extremities--no cyanosis or clubbing. No edema. Dermatologic--normal skin turgor, normal color, no abnormal lymph nodes, no rash. Neurologic--cranial nerves II through XII grossly intact. Rheumatologic--normal range of motion. Psychiatric--normal affect. Discharge Data Allergies Allergy/AdvReac Type Severity Reaction Status Date / Time injectable steroid AdvReac Intermediate hiccups Uncoded 06/19/23 00:47 Consultations 06/19/23 00:38 ED Decision to Admit Stat 06/19/23 03:27 Consult Cardiology Routine Procedures Performed Operation Date: 06/19/23 12:30 Actual Procedures p Cineradiography w/Routine Exam - Juan Khoury MD p Cath, Left with Cors and Vent - Juan Khoury MD p Drug Eluting Stent SGl Vessel - Juan Khoury MD s IVUS Coronary Single Vessel - Juan Khoury MD Ordered Studies 06/18/23 21:39 CT angio chest PE protocol Stat 06/19/23 11:28 CL Cath Imgs for PACS use only Stat 06/19/23 17:26 CL IVUS Coronary Single Vessel Routine Hospital Course (1) Chest pain: Amari is a 67M w/ PMH of KYMBERLY, HLD, impaired fasting glucose and osteoarthritis who presented to the ED for chest pain. Chest Pain | Rising Troponin * CP improved since presentation (had taken Aspirin prior to arrival), no additional intervention * CBC/CMP unremarkable * Chest CTA: Mild heart enlargement, moderate to severe coronary calcification, no evidence of PE * CXR: Cardiomegaly * Trop from 7 to 17 to 89, continue to trend q2h (repeat EKG w/o acute ST or T wave anomalies, no active CP) * Echo 2021: EF 55-60%, normal LV size and function. Ordered stress Echo, given exertional sx. * Consult cardiology given new coronary artery calcification on CTA. Appreciate recommendations. 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 * No evidence of PE on CTA * Now status post cardiac cath which showed evidence of severe disease, status post drug-eluting stent x 2 Chronic Conditions: * HLD - continue statin, no recent panel, check Lipid profile * KYMBERLY- continue CPAP, may use home device * OA - may have Tylenol PRN * Impaired Fasting Glucose - no Dx of DM, check A1c Code Status:Full Diet:Heart Healthy IVF:None DVT PPx:SCD CM: None Dispo: Med/Tele (2) Elevated troponin: (3) Impaired fasting glucose: (4) Obstructive sleep apnea: (5) Hypercholesterolemia: (6) Osteoarthritis: Plan D/C home, follow up with cardiology Total Time Total Time Spent Total Time Spent (In Minutes): 35 Discharge Plan Discharge Items Patient Disposition: Home - Self-Care Reason For Visit: CHEST PAIN Discharge Diagnosis: ACS Condition on Discharge: Good Activity: Resume your previous activity Non-emergency contact: Primary Care Provider and Skidder Loader Call non-emergency contact if: you have any medication questions and your s ymptoms worsen Follow-up/Referrals: Deyanira Agosto MD [Primary Care Provider] - Diet: Heart Healthy Add Attending Provider Instructions: please make appointment to follow up with Cradiology Pending Studies at Discharge: No Stand-Alone Forms: My [employer], Smoking Cessation Medications and DC Order Prescriptions: New atorvastatin 40 mg Tablet 40 mg PO QDD 30 Days Qty: 30 0RF aspirin 81 mg Tablet,Delayed Release (Dr/Ec) 81 mg PO QAM 30 Days Qty: 30 0RF lisinopril [Zestril] 5 mg Tablet 5 mg PO QAM 30 Days Qty: 30 0RF Brilinta 90 mg Tablet 90 mg PO BID 30 Days Qty: 60 0RF Continued coQ10 (ubiquinol) 200 mg Capsule 200 mg PO QDD Discontinued atorvastatin 10 mg tablet 10 mg PO QDD Discharge Orders: Discharge Order (Routine); Ordered 06/20/23 Ordered By: Beck Traore/Other Patient Handouts: Prediabetes, 5 Steps for Eating Healthier Admission Data Admit Date/Time: 06/19/23 01:28 Attending Provider: Beck Meyer Admit Provider: Jakob Grigsby Primary Care Provider: Deyanira Agosto Other Providers: Mina Elizabeth; Aristides Roy; Tano Lezama; Marino Browning; Azael Soria; Dennis Hancock Jr; Surendra Berry; Zaynab Bowens; Brianne Friend; Juan Khoury; Juan Jones; Alberto Stock; Mila Pisano; Ricardo Vela; Sanjuana Rodríguez; Gregorio Walker; Sergio Evans; Robert Gonzalez; Harry Montana; Alysha Hill Coding Level of Care Code 21198 INP/OBS DISCH >30 MIN Diagnoses Chest pain R07.9 Elevated troponin R79.89 Impaired fasting glucose R73.01 Obstructive sleep apnea G47.33 Hypercholesterolemia E78.00 Osteoarthritis M19.90 Time Spent (min) 35"
[2023-06-20] MEDS ORDERED: ATORVASTATIN 40 MG TAB PO SCH (16:30)
[2023-06-21] MEDS ORDERED: lisinopril 5 MG TAB PO SCH (09:00)
== END 2023-06-20 14:18 | disposition home or self-care (01) | DRG 322 ==
LOC: ED 21:18 → SUATTDRO 06-19 01:28 → EDINP 06-19 01:28 → 2E 06-19 03:28